=== PATIENT | male | born 1940 | race Caucasian/White ===

== ENCOUNTER → 2018-07-01 07:28 | Outpatient (CLI) | payer MEDICARE, SELFPAY ==
[2018-07-01 07:58] LABS: Absolute Lymphocyte Count 1.38 X10^3/ul (0.83-4.51); Absolute Neutrophil Count 2.2 X10^3/uL (2.0-7.7); Basophil# 0.04 X10^3/uL; Basophil% 0.9 % (0-1); Eosinophil# 0.23 X10^3/uL; Eosinophils% 5.2 % (0-5); Hematocrit 37.5 % (40-54); Hemoglobin 12.2 g/dl (13.0-16.5); Lymphocyte # 1.38 X10^3/ul (4.0); Mean Corp Hgb Conc 32.5 g/gl (32-36); Mean Corpuscular Hgb 33.5 pg (27.0-32.0); Mean Platelet Vol. 9.6 fl (6.2-12.0); Monocyte# 0.63 X10^3/uL; Monocyte% 14.2 % (0-10); Neutrophil # 2.17 X10^3/uL (2.7-7.7); Neutrophil % 48.7 % (47-70); Platelet Count 189 K/mm3 (150-450); RBC Distribution Width CV 12.8 % (11.6-14.6); RBC Distribution Width SD 47.4 fl (35.1-43.9); Red Blood Count 3.64 M/mm3 (4.6-6.2); White Blood Count 4.5 K/mm3 (4.4-11.0)
[2018-07-01 08:00] LABS: POSITIVE COUNT NO; POSITIVE DIFFERENTIAL NO; POSITIVE MORPHOLOGY NO
[2018-07-01 08:20] LABS: Microalbumin,Random Urine 23.5 mg/L (NO RANGE EST.); Microalbumin:Creatinine Ratio 23.8 mg/g CRE (<30 mg/g CRE)
[2018-07-01 08:32] LABS: PTHIN 55.3 pg/mL (18.4-80.1)
[2018-07-01 08:33] LABS: Vitamin B12 623 pg/mL (211-911); Vitamin D,25 Hydroxy 48.3 ng/mL (29.95-100.01)
[2018-07-01 09:22] LABS: ALB/GLOB Ratio 1.1 RATIO (0.9-2.4); AST(SGOT) 23 U/L (15-37); Alanine Aminotransfer ALT/SGPT 24 U/L (16-61); Albumin, Serum 3.7 g/dL (3.2-5.0); Alkaline Phosphatase 56 U/L (45-117); Anion Gap 6 (5-15); BUN 24 mg/dL (7-18); BUN/Creat Ratio 16.7 RATIO (10-20); Calcium,Total 8.7 mg/dL (8.5-10.1); Chloride 108 mmol/L (98-107); Cholesterol 166 mg/dL (200); Creatinine, Serum 1.44 mg/dL (0.70-1.30); EST Glomerular Filtration Rate 50 mL/min (>60); Est Glom Filt Rate - Afr Amer 61 mL/min (>60); Ferritin 79 ng/mL (26-388); Globulin 3.5 g/dL (2.2-4.2); Glucose 84 mg/dL (74-106); High Density Lipoprotein 39 mg/dL; Potassium 4.3 mmol/L (3.5-5.1); Protein, Total 7.2 g/dL (6.4-8.2); Sodium Level 141 mmol/L (136-145); Thyroid Stim Hormone (TSH) 5.21 uIU/mL (0.358-3.74); Triglycerides 105 mg/dL; Very Low Density Lipoprotein 21 mg/dL (5-40)
== END ==
PROVIDERS: Family Provider Family Medicine; PCP Family Medicine; Referring Provider Family Medicine; Visit Provider Family Medicine
DX: N18.3 Chronic kidney disease, stage 3 (moderate) (principal); D64.9 Anemia, unspecified; E78.00 Pure hypercholesterolemia, unspecified; G90.09 Other idiopathic peripheral autonomic neuropathy; E55.9 Vitamin D deficiency, unspecified
CPT/HCPCS: 36415; 80053; 80061; 82043; 82306; 82570; 82607; 82728; 82746; 83970; 84443; 85025

== ENCOUNTER → 2019-02-16 13:48 | Outpatient (CLI) | payer MEDICARE, SELFPAY ==
--- NOTE | 2019-02-16 13:58 | VDLE_ITS ---
Reason For Study: Phlebitis RIGHT LEFT GSV is normal. CFV is compressible, spontaneous, phasic, CFV is compressible, spontaneous, phasic, competent, and demonstrates normal competent and demonstrates normal augmentation. augmentation. FV is compressible, spontaneous, phasic, competent and demonstrates normal augmentation. POP V is compressible, spontaneous, phasic, competent and demonstrates normal augmentation. T/P Trunk is compressible. PTV is compressible. RT PerV is compressible. Thrombus filled varicose veins right medial calf. Interpretation Summary Deep veins of the right lower extremity are patent and compressible segmentally. There is no evidence of right lower extremity deep vein thrombosis. Valvular competence appears intact within the proximal deep venous system on the right . The right greater saphenous vein appears patent and compressible segmentally. Acute superficial thrombophlebitis is noted involving superficial varicosities in the right medial calf. Ordering Physician: Jeronimo Perez Referring Physician: Jeronimo Perez Performed By: Christie Zamora RVT
== END ==
PROVIDERS: Family Provider Family Medicine; PCP Family Medicine; Referring Provider Family Medicine; Visit Provider Family Medicine
DX: I80.3 Phlebitis and thrombophlebitis of lower extremities, unspecified (principal); Z86.718 Personal history of other venous thrombosis and embolism
CPT/HCPCS: 93971

== ENCOUNTER → 2019-07-08 13:51 | Outpatient (CLI) | payer MEDICARE, SELFPAY ==
[2019-07-08 16:31] LABS: Albumin, Serum 3.9 g/dL (3.2-5.0); BUN 29 mg/dL (7-18); BUN/Creat Ratio 20.3 RATIO (10-20); Calcium,Total 8.7 mg/dL (8.5-10.1); Chloride 106 mmol/L (98-107); Creatinine, Serum 1.43 mg/dL (0.70-1.30); EST Glomerular Filtration Rate 51 mL/min (>60); Est Glom Filt Rate - Afr Amer 61 mL/min (>60); Glucose 104 mg/dL (74-106); Phosphorus 3.5 mg/dL (2.5-4.9); Potassium 4.5 mmol/L (3.5-5.1); Sodium Level 141 mmol/L (136-145)
[2019-07-09 09:58] LABS: PTHIN 66.4 pg/mL (18.4-80.1)
== END ==
PROVIDERS: Family Provider Family Medicine; PCP Family Medicine; Referring Provider Internal Medicine Nephrology; Visit Provider Internal Medicine Nephrology
DX: N18.3 Chronic kidney disease, stage 3 (moderate) (principal)
CPT/HCPCS: 36415; 80069; 83970

== ENCOUNTER 2019-09-24 11:50 | Observation (INO) | payer MEDICARE, SELFPAY ==
[2019-09-24] VITALS (10 sets, daily range): BP systolic 112–143; BP diastolic 62–85; PULSE 52–62; RESP 16–19; TEMP 36.5–36.8; O2SAT 94–98; BMI 28.6; BMI 27.7
--- NOTE | 2019-09-24 11:43 | EKG12_ITS ---
Test Reason : CP Blood Pressure : / mmHG Vent. Rate : 064 BPM Atrial Rate : 083 BPM P-R Int : 168 ms QRS Dur : 098 ms QT Int : 412 ms P-R-T Axes : 022 -12 059 degrees QTc Int : 425 ms Sinus rhythm with Premature atrial complexes Otherwise normal ECG Confirmed by AYALA ZUNIGA, CHANDA ([id number]), film and video editor GUILLERMO KIRKPATRICK ([id number]) on 09/28/2019 9:01:20 AM Referred By: Max Bates Confirmed By:CHANDA CAI MD
--- NOTE | 2019-09-24 11:43 | RAD_ITS ---
STUDY: X-RAY CHEST REASON FOR EXAM: Male, 79 years old. CHEST PAIN, NAUSEA TECHNIQUE: Single AP portable view of the chest. COMPARISON: Comparison is made with prior study of August 02, 2017. FINDINGS: EKG electrode are seen. The lungs are clear and expanded. There is no demonstrated pleural abnormality. Normal size heart. Normal mediastinum and valentin. Normal visualized pulmonary arteries. Normal visualized aortic arch and descending thoracic aorta. There are diffuse degenerative changes of the visualized thoracic spine. Normal visualized ribs, clavicles, and shoulders. There is no demonstrated abnormality of the visualized soft tissue structures of the upper abdomen. RAD/Chest 1 View (Portable) IMPRESSION: No acute abnormality is seen. Electronically Signed: Milton Peterson, at 12:16 EST , Service support ,
--- NOTE | 2019-09-24 11:43 | ED.VIS.GEN ---
History of Present Illness Chief Complaint: Chest Pain Informant: Patient Onset: Today Context: Gradual Onset Current Severity: - - Resolved Maximum Severity: Moderate Narrative: Patient reports substernal chest pressure today. He states he was helping serve food for [employer]. He got a pressure sensation behind the sternum that progressively worsened. He states he felt woozy. He did go the bathroom and have a bowel movement. He continued to have chest pressure. EMS was called and patient states the chest pressure resolved while squad was attending to him. He estimates the pain lasted approximately 30 minutes. He did not take any medication to resolve the symptoms. He denies history of cardiac disease. His last heart cath was 7 years ago and clean at that time. - Past Medical History (1) Esophageal reflux Status: Chronic (2) Hx of venous thrombosis and embolism Status: Chronic (3) Pure hypercholesterolemia Status: Chronic Past Medical History - Allergies and Home Meds Allergies/Adverse Reactions: Allergies amoxicillin [From Augmentin] Adverse Reaction (Verified 09/24/19 11:44) Rash clavulanic acid [From Augmentin] Adverse Reaction (Verified 09/24/19 11:44) Rash Primary Care Physician: Jeronimo Perez MD [Primary Care Provider] - Prior records reviewed: Yes Surgical History: appendectomy, herniorrhaphy Smoking Status: Never smoker - Family History Maternal Family History: Reports: Hypertension Paternal Family History: Reports: Stroke Review of Systems General: Denies: Chills, Fever Eyes: Denies: Visual changes - bilaterally ENT: Denies: Bilateral ear pain Cardiovascular: Reports: Chest pain. Denies: Palpitations, Heart racing Respiratory: Reports: Dyspnea. Denies: Cough, Sputum Gastrointestinal: Denies: Abdominal pain, Nausea, Vomiting, Diarrhea Genitourinary: Denies: Dysuria Skin: Denies: Rash Neurological: Denies: Headache Psych: Denies: Depression Allergy: Denies: Uticaria Physical Exam Vital Signs/Narrative: Vital Signs Temp Pulse Resp BP 09/24/19 11:23 97.7 F L 57 L 16 143/82 H Inital Vital Signs reviewed: Yes General: Well nourished, Well developed Head: Normocephalic ENT: Moist mucous membranes Neck: Supple Cardiovascular: Bradycardia Respiratory: No distress, CTA bilaterally Abdomen: Soft, Nontender, Normal bowel sounds Extremities: Nontender Skin: Normal color Neurological: Alert, Oriented x3 Psychological: Normal affect Diagnostic/Tx/Re-eval Impressions Chest X-Ray 09/24/19 11:43 IMPRESSION: No acute abnormality is seen. Electronically Signed: Milton Peterson, at 12:16 EST , Service support , 09/24/19 11:43 Chest 1 View (Portable) [RAD] Stat Laboratory Results 09/24/19 09/24/19 11:56 11:56 WBC 5.7 RBC 3.24 L Hgb 10.6 L Hct 33.8 L MCV 104.3 H MCH 32.7 H MCHC 31.4 L RDW Std Deviation 50.0 H RDW Coeff of Dimas 13.0 Plt Count 162 MPV 9.5 Immature Gran % (Auto) 0.900 Neut % (Auto) 67.5 Lymph % (Auto) 17.7 L [place] % (Auto) 9.6 Eos % (Auto) 3.4 Baso % (Auto) 0.9 Absolute Neuts (auto) 3.8 Absolute Lymphs (auto) 1.00 Nucleated RBC % 0 Sodium 141 Potassium 4.6 Chloride 110 H Carbon Dioxide 25.0 Anion Gap 6 BUN 25 H Creatinine 1.42 H Estim Creat Clear Calc 49.59 Est GFR (MDRD) Af Amer 62 Est GFR (MDRD) Non-Af 51 L BUN/Creatinine Ratio 17.6 Glucose 97 Calcium 8.8 Troponin I < 0.015 - EKG Initial EKG Interpretation: Sinus Rhythm - Sinus at 64 with PACs. No acute ischemia. - Medical Decision Making Patient took 1 baby aspirin this morning. He received 3 additional baby aspirin on arrival. Patient has had no recurrent symptoms, however initial troponin is obtained very quickly after his pain episode. I recommended observation overnight to cycle cardiac enzymes. He is in agreement with this. I will speak with the hospitalist. KULDEEP=2 ED Disposition - Plan for ED Patient: Disposition: Acute Care Hospital [facility] Diagnosis: Chest pain Referrals: Jeronimo Perez MD [Primary Care Provider] -
[2019-09-24] MEDS: Aspirin 81 MG TAB.CHEW 243 MG PO (11:51)
[2019-09-24 12:12] LABS: Absolute Neutrophil Count 3.8 X10^3/uL (2.0-7.7); Basophil# 0.05 X10^3/uL; Basophil% 0.9 % (0-1); Eosinophil# 0.19 X10^3/uL; Eosinophils% 3.4 % (0-5); Hematocrit 33.8 % (40-54); Hemoglobin 10.6 g/dL (13.0-16.5); Lymphocyte % 17.7 % (19-41); Mean Corp Hgb Conc 31.4 g/dL (32-36); Mean Corpuscular Hgb 32.7 pg (27.0-32.0); Mean Corpuscular Volume 104.3 fL (80-94); Mean Platelet Vol. 9.5 fl (6.2-12.0); Monocyte# 0.54 X10^3/uL; Monocyte% 9.6 % (0-10); NRBC Flagged by Analyzer 0 % (0-5); Neutrophil # 3.82 X10^3/uL (2.7-7.7); Neutrophil % 67.5 % (47-70); Platelet Count 162 K/mm3 (150-450); Red Blood Count 3.24 M/mm3 (4.6-6.2); White Blood Count 5.7 K/mm3 (4.4-11.0)
[2019-09-24 12:30] LABS: Anion Gap 6 (5-15); BUN 25 mg/dL (7-18); BUN/Creat Ratio 17.6 RATIO (10-20); Calcium,Total 8.8 mg/dL (8.5-10.1); Chloride 110 mmol/L (98-107); Creatinine, Serum 1.42 mg/dL (0.70-1.30); EST Glomerular Filtration Rate 51 mL/min (>60); Est Glom Filt Rate - Afr Amer 62 mL/min (>60); Estimated Creatinine Clearance 49.59 ml/min; Glucose 97 mg/dL (74-106); Potassium 4.6 mmol/L (3.5-5.1); Sodium Level 141 mmol/L (136-145)
--- NOTE | 2019-09-24 13:06 | PCM.HP.STD ---
Problem List (1) Chest pain Status: Acute (2) Amnesia (retrograde) Status: Chronic (3) Shoulder pain Status: Chronic (4) Pure hypercholesterolemia Status: Chronic (5) Hx of venous thrombosis and embolism Status: Chronic (6) Esophageal reflux Status: Chronic History of Present Illness Date of Admission: 09/24/19 Chief Complaint: Atypical chest pain today The patient is a 79 year old M with history of dyslipidemia, superficial thrombophlebitis in the right medial calf, came with chest pain which lasted less than 1 hour. Chest pain started midsternal, localized, 5-6/10 intensity without radiation or aggravating or relieving factor. Patient was helping serve food on [employer] when chest pain started. Chest pain was pressure-like, heavy 8 put on chest he felt woozy. Later on he went to bathroom and had bowel movement the stool chest pain was persistent and EMS was called. He denies associated shortness of breath, palpitation, sweating or syncope. He denies previous history of heart attack. He had a stress test in November 2011 and heart cath in 04/27/2012 and all were okay as per the patient. [] EMS EKG shows normal sinus rhythm 58 bpm. In ER, EKG normal sinus rhythm with PACs at [address]-T changes to suggest ischemia. Past Medical History Past Medical History (Chronic Problems): Chronic Problems Amnesia (retrograde) (Chronic) Shoulder pain (Chronic) Pure hypercholesterolemia (Chronic) Hx of venous thrombosis and embolism (Chronic) Esophageal reflux (Chronic) Allergies amoxicillin [From Augmentin] Adverse Reaction (Verified 09/24/19 11:44) Rash clavulanic acid [From Augmentin] Adverse Reaction (Verified 09/24/19 11:44) Rash Home Medications: Ambulatory Orders Medication Instructions Recorded Acetaminophen [Tylenol] 500 - 1,000 mg PO Q6H PRN PRN 08/02/17 Acetaminophen/Diphenhydramine 1 each PO QHS 08/02/17 [Tylenol Pm Ex-Strength Caplet] Aspirin E.C. [Ecotrin] 81 mg PO DAILY@0800 08/02/17 Cetirizine HCl [Zyrtec] 10 mg PO DAILY 08/02/17 Dapsone 50 mg PO QHS 08/02/17 Ergocalciferol [Vitamin D] 50,000 unit PO QMONTH 08/02/17 Ezetimibe 10 mg PO DAILY 08/02/17 Famotidine 40 mg PO QHS 08/02/17 Fluticasone 0.05% [Flonase Nasal 2 spray NASAL QHS 08/02/17 [place]] Glucosamine Sulfate 1,500 mg PO QHS 08/02/17 Multivitamins,Ther W-Minerals 1 tablet PO DAILY 08/02/17 [Multivitamin With Minerals] [place]-3 Fatty Acids/Fish Oil [Fish 1 each PO BID 08/02/17 Oil 1,000 mg Capsule] Polyethylene Glycol 3350 [Miralax] 17 gm PO DAILY 08/02/17 Vit C/E/Zn/Coppr/Lutein/Zeaxan 1 each PO BID 08/02/17 [Preservision Areds 2 Softgel] hydrOXYzine tablet [Atarax tablet] 10 mg PO QHS 08/02/17 Omeprazole 20 mg PO DAILY 09/24/19 Surgical History: appendectomy, herniorrhaphy Psychiatric History: No pertinent psych hx Smoking Status: Never smoker - *Family History Maternal History Items: Hypertension Paternal History Items: Stroke Review of Systems Constitutional: Denies: Chills, Fever, Weight Change HEENT: Denies: Head Aches, Sinus Congestion, Sinus Drainage Cardiovascular: Reports: Chest Pain, Chest Pressure. Denies: Palpitations Respiratory: Denies: Cough, Shortness of breath at rest, Sputum production Gastrointestinal: Denies: Abdominal Pain, Nausea, Vomiting Genitourinary: Reports: Hesitancy - Once in night, Nocturia. Denies: Dysuria, Frequency Musculoskeletal: Denies: Joint Pain, Joint Tenderness Skin: Denies: Rash, Wounds Neurological: Reports: Balance problems. Denies: Focal weakness, Numbness, Tingling Psychiatric: Denies: Anxiety, Depression, Homicidal Ideations, Suicidal Ideations Hematologic/ Lymphatic: Denies: Easy Bruising, Easy Bleeding VTE Information - Inpt Only VTE Present on Admission: No VTE Mechan Device Prophylaxis: None VTE Pharm Prophylaxis ordered?: Yes Patient Problems: Active and Suspected Problems Chest pain (Acute) - Physical Exam Vitals/I&O's: Vital Signs Temp Pulse Resp BP Pulse Ox 97.7 F L 57 L 16 143/82 H 98 09/24/19 11:23 09/24/19 11:23 09/24/19 11:23 09/24/19 11:23 09/24/19 11:43 Oxygen Delivery Method Room Air Weight: 229 lb 0.964 oz Body Mass Index (BMI) 28.6 General: Alert, Oriented x3, Cooperative HEENT: Atraumatic, PERRLA, EOMI, Normocephalic Neck: Supple, No JVD, Negative Carotid Bruits Lungs: Clear to auscultation, Normal air movement, No rhonchi, No wheeze, No rales Cardiovascular: Regular rate, Normal S1, Normal S2, No murmurs, Irregular Rate - Irregular rate on palpation. PAC on EKG Abdomen: Bowel Sounds Present, Soft, Non Tender, Non-Distended, No Hepato-splenomegaly Extremities: No edema, Capillary Refill Less than 3 Seconds Skin: No rashes, No breakdown Musculoskeletal: No Tenderness to Palpation of Joints or Extremities, Arthritic Changes Lymphatic: No Cervical, Supraclavicular, or Inguinal Adenopathy Neurological: Cranial nerves II-XII grossly intact, Deep Tendon Reflexes 2+/4 and Symmetrical, Neuro grossly intact Psych/Mental Status: Normal Affect, Appropriate Laboratory Results 09/24/19 11:56: WBC 5.7, RBC 3.24 L, Hgb 10.6 L, Hct 33.8 L, MCV 104.3 H, MCH 32.7 H, MCHC 31.4 L, RDW Std Deviation 50.0 H, RDW Coeff of Dimas 13.0, Plt Count 162, MPV 9.5, Immature Gran % (Auto) 0.900, Neut % (Auto) 67.5, Lymph % (Auto) 17.7 L, [place] % (Auto) 9.6, Eos % (Auto) 3.4, Baso % (Auto) 0.9, Absolute Neuts (auto) 3.8, Absolute Lymphs (auto) 1.00, Nucleated RBC % 0 09/24/19 11:56: Sodium 141, Potassium 4.6, Chloride 110 H, Carbon Dioxide 25.0, Anion Gap 6, BUN 25 H, Creatinine 1.42 H, Estim Creat Clear Calc 49.59, Est GFR (MDRD) Af Amer 62, Est GFR (MDRD) Non-Af 51 L, BUN/Creatinine Ratio 17.6, Glucose 97, Calcium 8.8, Troponin I < 0.015 Assessment/Plan All Active Problems Chest pain (Acute) The patient is a 79 year old M with history of dyslipidemia, superficial thrombophlebitis in the right medial calf, came with chest pain which lasted less than 1 hour. Chest pain started midsternal, localized, 5-6/10 intensity without radiation or aggravating or relieving factor. Patient was helping serve food on [employer] when chest pain started. Chest pain was pressure-like, heavy 8 put on chest he felt woozy. Later on he went to bathroom and had bowel movement the stool chest pain was persistent and EMS was called. He denies associated shortness of breath, palpitation, sweating or syncope. He denies previous history of heart attack. He had a stress test in November 2011 and heart cath in 04/27/2012 and all were okay as per the patient. [] EMS EKG shows normal sinus rhythm 58 bpm. In ER, EKG normal sinus rhythm with PACs at [address]-T changes to suggest ischemia. 1. Atypical chest pain, rule out acute coronary syndrome: Patient is being admitted in PCU. Serial troponin enzymes. EKG after 3 hours. If troponins comes positive, consult cardiology for cardiac cath. Pharmacological nuclear stress test nuclear stress test troponins are negative. Patient had a stress test negative in 2008, 2011 and negative heart cath in 2011. 2. Pozo's lung, hayfever: Patient chest x-ray independently reviewed. It shows fine reticular lines/chronic interstitial changes in both lower lung [place]. No acute abnormality. Chest x-ray report reviewed. 3. GERD: On omeprazole 4. Possible mild BPH: Patient is not on Flomax or finasteride. In patients medical history paper, patient had rectal exam in August 2019 and listed as 40 g, smooth, symmetrical prostate. We will further evaluate for lower urinary tract symptoms. 5. Dyslipidemia: Fasting blood draw tomorrow a.m. 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 Total time of the visit including total time spent in counseling or coordination of care, (more than 50% of the total time, spent in obtaining medical information from nurses), review of labs and imaging is 40 minutes Advance directive/CODE STATUS/living will: Patient has advanced directive form given by PCP but he has not filled up. When discussed about different options; full code, DNR CCA arrest and DNR CC, he wants DNR CC arrest. Patient does not want artificial life support including intubation, tube feed, ventilator and/chest compression. Total time spent in [id number] encounter in discussion of advanced directive 18 minutes. Code Visit OBSV E&M: 84569 Initial observation care L3 Procedures: 06480 Advncd Care Plan 30 Min
--- NOTE | 2019-09-24 14:24 | EKG12_ITS ---
Test Reason : AM EKG Blood Pressure : / mmHG Vent. Rate : 058 BPM Atrial Rate : 058 BPM P-R Int : 184 ms QRS Dur : 092 ms QT Int : 424 ms P-R-T Axes : 041 -12 053 degrees QTc Int : 416 ms Sinus bradycardia Otherwise normal ECG Confirmed by ALYCIA ZUNIGA, LISANDRA ([id number]), news videotape editor GUILLERMO KIRKPATRICK ([id number]) on 09/29/2019 11:07:43 AM Referred By: Max Bates Confirmed By:LISANDRA TONG MD
[2019-09-24] MEDS: Lactated Ringers 1,000 ML 75 ML IV (15:04)
[2019-09-24] MEDS: hydrOXYzine 10 MG Tablet PO (21:38)
[2019-09-24] MEDS: Famotidine 20 MG Tablet 40 MG PO (21:38)
[2019-09-25] VITALS (10 sets, daily range): BP systolic 113–143; BP diastolic 54–76; PULSE 52–67; RESP 16–18; TEMP 36.3–36.8; O2SAT 93–98
[2019-09-25] MEDS: Lactated Ringers 1,000 ML 75 ML IV (03:25)
--- NOTE | 2019-09-25 05:55 | NM_ITS ---
CLINICAL: 79-year-old hypercholesterolemic male with reported history of chest discomfort. REST-REGADENOSON 99m Tc SESTAMIBI STRESS MYOCARDIAL PERFUSION SPECT COMPARISON: None available FINDINGS: Following the intravenous administration of 14.6 mCi of 99m Tc sestamibi, the resting myocardial perfusion acquisitions demonstrate relatively uniform perfusion noted throughout all left ventricular myocardial segments. The patient was administered intravenous regadenoson (0.4 mgm). Following the intravenous administration of 44.5 mCi of 99m Tc sestamibi, the post regadenoson images reveal decreased perfusion in the inferoapical and apical segments. The post stress resting left ventricular ejection fraction is calculated to be 72.0 % by gated SPECT technique. Wall motion and end systolic thickening are considered normal. NM/Nuclear Stress Test - Chemical IMPRESSION: 1. ABNORMAL REST-REGADENOSON STRESS 99m Tc SESTAMIBI MYOCARDIAL PERFUSION SPECT. A. Pharmacologic-induced left ventricular ischemia involving the inferoapical and apical segments. B. Preservation of resting left ventricular myocardial systolic function. (Maria M et al, J Nucl Med 37: 105P, 1995). C. In a registry of 1,511 patients > 80 years of age demonstrating moderate cardiac perfusion defect scores at myocardial perfusion SPECT imaging accomplished at the [facility] or [facility], patients demonstrated a greater than 3% annualized incidence of cardiac . (Noel et al, [facility] 490A, 1999). Electronically Signed: Nish Delarosa DO at 13:37 EST Tel , Service support ,
--- NOTE | 2019-09-25 05:55 | EKG12_ITS ---
Test Reason : AM EKG Blood Pressure : / mmHG Vent. Rate : 058 BPM Atrial Rate : 058 BPM P-R Int : 180 ms QRS Dur : 090 ms QT Int : 424 ms P-R-T Axes : 045 -05 058 degrees QTc Int : 416 ms Sinus bradycardia Otherwise normal ECG Confirmed by ALYCIA ZUNIGA, LISANDRA ([id number]), desk editor GUILLERMO KIRKPATRICK ([id number]) on 09/29/2019 10:11:28 AM Referred By: Max Bates Confirmed By:LISANDRA TONG MD
[2019-09-25] MEDS: Aspirin E.C. 81 MG Tablet PO (06:13)
--- NOTE | 2019-09-25 08:10 | NURSING ---
per pt has a history of hypoglycemia and is concerned because he is not eating breakfast. BS obtained and normal. Educated patient on S/S of hypoglycemia and discussed need to notify me if he has any further concerns or symptoms. Will continue to monitor
[2019-09-25 08:15] LABS: Bedside Glucose 85 mg/dL (70-110)
--- NOTE | 2019-09-25 11:41 | DCINST_ITS ---
- Discharge Diagnoses Current Active Problems: Current Active and Chronic Problems Chest pain (Acute) You will use the following diet at home:: Cardiac Your liquids should be the consistency of: Regular/Thin Discharge Activity: May Not Drive Call your doctor if you observe: Fever of 101 or Higher, Coldness, Increased Pain, Numbness or Tingling, Change in Color, Inability to have a bowel movement, Shortness of breath, Fainting spells, Swelling in the ankles, Chest pain, Increased palpitations (irregular heartbeat) Allergies/Adverse Reactions: Allergies amoxicillin [From Augmentin] Adverse Reaction (Verified 09/24/19 11:44) Rash clavulanic acid [From Augmentin] Adverse Reaction (Verified 09/24/19 11:44) Rash Medications to take at Discharge Acetaminophen [Tylenol] 500 - 1,000 mg PO Q6H PRN PRN 08/02/17 Acetaminophen/Diphenhydramine [Tylenol Pm Ex-Strength Caplet] 1 each PO QHS 08/02/17 Aspirin E.C. [Ecotrin] 81 mg PO DAILY@0800 08/02/17 Cetirizine HCl [Zyrtec] 10 mg PO DAILY 08/02/17 Dapsone 50 mg PO QHS 08/02/17 Ergocalciferol [Vitamin D] 50,000 unit PO QMONTH 08/02/17 Ezetimibe 10 mg PO DAILY 08/02/17 Famotidine 40 mg PO QHS 08/02/17 Fluticasone 0.05% [Flonase Nasal [place]] 2 spray NASAL QHS 08/02/17 Glucosamine Sulfate 1,500 mg PO QHS 08/02/17 Multivitamins,Ther W-Minerals [Multivitamin With Minerals] 1 tablet PO DAILY 08/02/17 [place]-3 Fatty Acids/Fish Oil [Fish Oil 1,000 mg Capsule] 1 each PO BID 08/02/17 Polyethylene Glycol 3350 [Miralax] 17 gm PO DAILY 08/02/17 Vit C/E/Zn/Coppr/Lutein/Zeaxan [Preservision Areds 2 Softgel] 1 each PO BID 08/02/17 hydrOXYzine tablet [Atarax tablet] 10 mg PO QHS 08/02/17 Omeprazole 20 mg PO DAILY 09/24/19 Primary Care Physician: Jeronimo Perez MD [Primary Care Provider] - Please follow up with your Primary Care Physician in: in 2 weeks Test Results: Test results from this visit will be discussed in further detail at your follow-up appointment, if applicable.
[2019-09-25] MEDS: Polyethylene Glycol 3350 17 GM PACKET PO (12:32)
[2019-09-25] MEDS: Loratadine 10 MG Tablet PO (12:32)
[2019-09-25] MEDS: Ezetimibe 10 MG Tablet PO (12:32)
[2019-09-25] MEDS: Multivitamins,Ther W-Minerals Tablet 1 TABLET PO (12:32)
[2019-09-25] MEDS: Pantoprazole Sodium 20 MG Tablet PO (12:32)
--- NOTE | 2019-09-25 12:43 | PCM.DC.SUM ---
Discharge Date and Diagnosis - Problem List Patient Problems: Active and Suspected Problems Chest pain (Acute) Date of Admission: 09/24/19 Date of Discharge: 09/25/19 - Primary Discharge Diagnosis Active and Suspected Problems Chest pain (Acute) - Secondary Discharge Diagnosis Chronic Problems Amnesia (retrograde) (Chronic) Shoulder pain (Chronic) Pure hypercholesterolemia (Chronic) Hx of venous thrombosis and embolism (Chronic) Esophageal reflux (Chronic) Hospital Course and Treatment Imaging Results: 09/25/19 05:55 Nuclear Stress Test - Chemical [NM] AM (NON MEDS) Operations: None Summary of Care Provided: The patient is a 79 year old M [] Patient Problems: Active and Suspected Problems Chest pain (Acute) - Physical Exam Vitals/I&O's: Vital Signs Temp Pulse Resp BP Pulse Ox 97.9 F 58 L 16 136/73 H 96 09/25/19 12:42 09/25/19 12:42 09/25/19 12:42 09/25/19 12:42 09/25/19 12:42 Oxygen Delivery Method Room Air Weight: 221 lb 12.56 oz Body Mass Index (BMI) 27.7 Intake and Output for Last 24 Hours 09/23/19 09/24/19 09/25/19 23:59 23:59 23:59 Intake Total 1628.75 / 1628.75 738.75 / 738.75 Balance 1628.75 / 1628.75 738.75 / 738.75 Laboratory Results 09/24/19 15:17: Troponin I < 0.015 09/24/19 18:26: Troponin I < 0.015 09/25/19 08:10: POC Glucose 85 Current Medications Acetaminophen (Tylenol) 650 mg PO Q6H PRN PRN PRN Reason: Pain Score 1-3/Temp > 100.7 F Aspirin (Ecotrin) 81 mg PO DAILY@0800 [facility], [facility] Last Admin: 09/25/19 06:13 Dose: 81 mg Documented by: Dapsone (Dapsone) 50 mg PO QHS [facility], [facility] Last Admin: 09/24/19 21:38 Dose: 50 mg Documented by: Ezetimibe (Zetia) 10 mg PO DAILY [facility], [facility] Last Admin: 09/25/19 12:32 Dose: 10 mg Documented by: Enoxaparin Sodium (Lovenox) 30 mg SC DAILY@0600 [facility], [facility] Last Admin: 09/25/19 06:02 Dose: Not Given Documented by: Famotidine (Pepcid) 40 mg PO QHS [facility] Last Admin: 09/24/19 21:38 Dose: 40 mg Documented by: Fluticasone Propionate (Flonase Nasal [place]) [facility] Last Admin: 09/24/19 21:38 Dose: Not Given Documented by: Glucagon () 1 mg IM .X1 PRN PRN Reason: Hypoglycemia Hydroxyzine HCl (Atarax Tablet) 10 mg PO QHS [facility] Last Admin: 09/24/19 21:38 Dose: 10 mg Documented by: Lactated Ringer's () 1,000 mls @ 75 mls/hr IV .[id number] [facility], [facility] Last Infusion: 09/25/19 08:30 Dose: 0 mls/hr Documented by: Dextrose (Dextrose 10%-Water) 250 mls @ 999 mls/hr IV .Q16M PRN; Protocol PRN Reason: HYPOGLYCEMIA Sodium Chloride () 500 mls @ 15 mls/hr IV PRN PRN PRN Reason: Blood Transfusion Sodium Chloride () 250 mls @ 15 mls/hr IV .[id number] PRN PRN Reason: Saline Flush Sodium Chloride () 250 mls @ 15 mls/hr IV .[id number] PRN PRN Reason: Additional IVPB Infusion Loratadine (Claritin) 10 mg PO DAILY [facility] Last Admin: 09/25/19 12:32 Dose: 10 mg Documented by: Morphine Sulfate () 2 mg IV Q3H PRN PRN PRN Reason: Pain Score 6-10/10 Multivitamins/Minerals ([facility]ivitamin With Minerals) [facility] Last Admin: 09/25/19 12:32 Dose: 1 tablet Documented by: Nitroglycerin (Nitrostat) 0.4 mg SUBLINGUAL Q5M PRN PRN Reason: CARDIAC/CHEST PAIN Oxycodone HCl (Oxyir) 5 mg PO Q4H PRN PRN PRN Reason: Pain Score 4-5/10 Pantoprazole Sodium (Protonix) 20 mg PO DAILY [facility] Last Admin: 09/25/19 12:32 Dose: 20 mg Documented by: Polyethylene Glycol (Miralax) 17 gm PO DAILY [facility] Last Admin: 09/25/19 12:32 Dose: 17 gm Documented by: Senna/Docusate Sodium (Senokot-S, Brionna-Colace) 2 tablet PO BID PRN PRN PRN Reason: Constipation Sodium Chloride () 10 - 40 ml IV UD PRN PRN Reason: SALINE FLUSH Discharge Activity: May Not Drive Call your doctor if you observe: Fever of 101 or Higher, Coldness, Increased Pain, Numbness or Tingling, Change in Color, Inability to have a bowel movement, Shortness of breath, Fainting spells, Swelling in the ankles, Chest pain, Increased palpitations (irregular heartbeat) Home Medications: Medications to take at Discharge Acetaminophen [Tylenol] 500 - 1,000 mg PO Q6H PRN PRN 08/02/17 Acetaminophen/Diphenhydramine [Tylenol Pm Ex-Strength Caplet] 1 each PO QHS 08/02/17 Aspirin E.C. [Ecotrin] 81 mg PO DAILY@0800 08/02/17 Cetirizine HCl [Zyrtec] 10 mg PO DAILY 08/02/17 Dapsone 50 mg PO QHS 08/02/17 Ergocalciferol [Vitamin D] 50,000 unit PO QMONTH 08/02/17 Ezetimibe 10 mg PO DAILY 08/02/17 Famotidine 40 mg PO QHS 08/02/17 Fluticasone 0.05% [Flonase Nasal [place]] 2 spray NASAL QHS 08/02/17 Glucosamine Sulfate 1,500 mg PO QHS 08/02/17 Multivitamins,Ther W-Minerals [Multivitamin With Minerals] 1 tablet PO DAILY 08/02/17 [place]-3 Fatty Acids/Fish Oil [Fish Oil 1,000 mg Capsule] 1 each PO BID 08/02/17 Polyethylene Glycol 3350 [Miralax] 17 gm PO DAILY 08/02/17 Vit C/E/Zn/Coppr/Lutein/Zeaxan [Preservision Areds 2 Softgel] 1 each PO BID 08/02/17 hydrOXYzine tablet [Atarax tablet] 10 mg PO QHS 08/02/17 Omeprazole 20 mg PO DAILY 09/24/19 Primary Care Physician: Jeronimo Perez MD [Primary Care Provider] - Please follow up with your Primary Care Physician in: in 2 weeks Medical Necessity - Tobacco Use Smoking Status: Never smoker
[2019-09-25 13:03] LABS: Absolute Lymphocyte Count 1.43 X10^3/uL (0.83-4.51); Absolute Neutrophil Count 3.6 X10^3/uL (2.0-7.7); Basophil# 0.05 X10^3/uL; Basophil% 0.8 % (0-1); Eosinophil# 0.23 X10^3/uL; Eosinophils% 3.9 % (0-5); Hematocrit 35.5 % (40-54); Hemoglobin 11.2 g/dL (13.0-16.5); Lymphocyte # 1.43 X10^3/ul (4.0); Lymphocyte % 24.1 % (19-41); Mean Corp Hgb Conc 31.5 g/dL (32-36); Mean Corpuscular Hgb 32.8 pg (27.0-32.0); Mean Corpuscular Volume 104.1 fL (80-94); Mean Platelet Vol. 9.3 fl (6.2-12.0); Monocyte% 10.1 % (0-10); NRBC Flagged by Analyzer 0 % (0-5); Neutrophil # 3.61 X10^3/uL (2.7-7.7); Neutrophil % 60.9 % (47-70); Platelet Count 161 K/mm3 (150-450); RBC Distribution Width CV 13.1 % (11.6-14.6); RBC Distribution Width SD 49.6 fl (35.1-43.9); Red Blood Count 3.41 M/mm3 (4.6-6.2); White Blood Count 5.9 K/mm3 (4.4-11.0)
[2019-09-25 13:36] LABS: Anion Gap 4 (5-15); BUN 22 mg/dL (7-18); BUN/Creat Ratio 15.6 RATIO (10-20); Chloride 111 mmol/L (98-107); Cholesterol 172 mg/dL (200); Creatinine, Serum 1.41 mg/dL (0.70-1.30); EST Glomerular Filtration Rate 51 mL/min (>60); Est Glom Filt Rate - Afr Amer 62 mL/min (>60); Estimated Creatinine Clearance 49.94 ml/min; Glucose 118 mg/dL (74-106); High Density Lipoprotein 38 mg/dL; Magnesium 2.2 mg/dL (1.6-2.6); Potassium 4.2 mmol/L (3.5-5.1); Sodium Level 140 mmol/L (136-145); Thyroid Stim Hormone (TSH) 3.99 uIU/mL (0.358-3.74); Triglycerides 133 mg/dL; Very Low Density Lipoprotein 27 mg/dL (5-40)
--- NOTE | 2019-09-25 13:59 | PN_ITS ---
Patient Problems: Active and Suspected Problems Chest pain (Acute) Reason for Visit: The patient did not had any chest pain or shortness of breath during the pharmacological stress test. Pharmacological stress test reported as abnormal. Objective: Patient blood pressure is controlled. No tachycardia or shortness of breath. No fever. No chest pain since admission. Vitals/I&O's: Vital Signs Temp Pulse Resp BP Pulse Ox 97.9 F 58 L 16 136/73 H 96 09/25/19 12:42 09/25/19 12:42 09/25/19 12:42 09/25/19 12:42 09/25/19 12:42 Oxygen Delivery Method Room Air Weight: 221 lb 12.56 oz Body Mass Index (BMI) 27.7 Intake and Output for Last 24 Hours 09/23/19 09/24/19 09/25/19 23:59 23:59 23:59 Intake Total 1628.75 / 1628.75 738.75 / 738.75 Balance 1628.75 / 1628.75 738.75 / 738.75 General: Alert, Oriented x3, Cooperative HEENT: Atraumatic, PERRLA, EOMI, Normocephalic Neck: Supple, No JVD, Negative Carotid Bruits Lungs: Clear to auscultation, Normal air movement, No rhonchi, No wheeze, No rales Cardiovascular: Regular rate, Regular Rhythm, Normal S1, Normal S2, No murmurs Abdomen: Bowel Sounds Present, Soft, Non Tender Extremities: No edema, Capillary Refill Less than 3 Seconds Skin: No rashes, No breakdown Musculoskeletal: No Tenderness to Palpation of Joints or Extremities, Arthritic Changes Lymphatic: No Cervical, Supraclavicular, or Inguinal Adenopathy Neurological: Cranial nerves II-XII grossly intact, Deep Tendon Reflexes 2+/4 and Symmetrical, Neuro grossly intact, - - Essential tremor in hand Psych/Mental Status: Normal Affect, Appropriate Laboratory Results 09/24/19 15:17: Troponin I < 0.015 09/24/19 18:26: Troponin I < 0.015 09/25/19 05:55: Sodium 140, Potassium 4.2, Chloride 111 H, Carbon Dioxide 25.0, Anion Gap 4 L, BUN 22 H, Creatinine 1.41 H, Estim Creat Clear Calc 49.94, Est GFR (MDRD) Af Amer 62, Est GFR (MDRD) Non-Af 51 L, BUN/Creatinine Ratio 15.6, Glucose 118 H, Calcium 9.0, Magnesium 2.2, Triglycerides 133, Cholesterol 172, LDL Cholesterol 107, VLDL Cholesterol 27, HDL Cholesterol 38 L, TSH 3.99 H 09/25/19 08:10: POC Glucose 85 09/25/19 12:50: WBC 5.9, RBC 3.41 L, Hgb 11.2 L, Hct 35.5 L, MCV 104.1 H, MCH 32.8 H, MCHC 31.5 L, RDW Std Deviation 49.6 H, RDW Coeff of Dimas 13.1, Plt Count 161, MPV 9.3, Immature Gran % (Auto) 0.200, Neut % (Auto) 60.9, Lymph % (Auto) 24.1, George % (Auto) 10.1 H, Eos % (Auto) 3.9, Baso % (Auto) 0.8, Absolute Neuts (auto) 3.6, Absolute Lymphs (auto) 1.43, Nucleated RBC % 0 Current Medications Acetaminophen (Tylenol) 650 mg PO Q6H PRN PRN PRN Reason: Pain Score 1-3/Temp > 100.7 F Aspirin (Ecotrin) 81 mg PO DAILY@0800 COUNTS INCLUDE 234 BEDS AT THE [facility] Last Admin: 09/25/19 06:13 Dose: 81 mg Documented by: Dapsone (Dapsone) 50 mg PO QHS COUNTS INCLUDE 234 BEDS AT THE [facility] Last Admin: 09/24/19 21:38 Dose: 50 mg Documented by: Ezetimibe (Zetia) 10 mg PO DAILY COUNTS INCLUDE 234 BEDS AT THE [facility] Last Admin: 09/25/19 12:32 Dose: 10 mg Documented by: Enoxaparin Sodium (Lovenox) 30 mg SC DAILY@0600 COUNTS INCLUDE 234 BEDS AT THE [facility] Last Admin: 09/25/19 06:02 Dose: Not Given Documented by: Famotidine (Pepcid) 40 mg PO QHS COUNTS INCLUDE 234 BEDS AT THE [facility] Last Admin: 09/24/19 21:38 Dose: 40 mg Documented by: Fluticasone Propionate (Fl[facility]ase Nasal [place]) [facility] Last Admin: 09/24/19 21:38 Dose: Not Given Documented by: Glucagon () 1 mg IM .X1 PRN PRN Reason: Hypoglycemia Hydroxyzine HCl (Atarax Tablet) [facility] Last Admin: 09/24/19 21:38 Dose: 10 mg Documented by: Lactated Ringer's () 1,000 mls @ 75 mls/hr IV .[id number] COUNTS INCLUDE 234 BEDS AT THE [facility] Last Infusion: 09/25/19 08:30 Dose: 0 mls/hr Documented by: Dextrose (Dextrose 10%-Water) 250 mls @ 999 mls/hr IV .Q16M PRN; Protocol PRN Reason: HYPOGLYCEMIA Sodium Chloride () 500 mls @ 15 mls/hr IV PRN PRN PRN Reason: Blood Transfusion Sodium Chloride () 250 mls @ 15 mls/hr IV .[id number] PRN PRN Reason: Saline Flush Sodium Chloride () 250 mls @ 15 mls/hr IV .[id number] PRN PRN Reason: Additional IVPB Infusion Loratadine (Claritin) 10 mg PO DAILY COUNTS INCLUDE 234 BEDS AT THE [facility] Last Admin: 09/25/19 12:32 Dose: 10 mg Documented by: Morphine Sulfate () 2 mg IV Q3H PRN PRN PRN Reason: Pain Score 6-10/10 Multivitamins/Minerals (Multivitamin With Minerals) [facility] Last Admin: 09/25/19 12:32 Dose: 1 tablet Documented by: Nitroglycerin (Nitrostat) 0.4 mg SUBLINGUAL Q5M PRN PRN Reason: CARDIAC/CHEST PAIN Oxycodone HCl (Oxyir) 5 mg PO Q4H PRN PRN PRN Reason: Pain Score 4-5/10 Pantoprazole Sodium (Protonix) 20 mg PO DAILY COUNTS INCLUDE 234 BEDS AT THE [facility] Last Admin: 09/25/19 12:32 Dose: 20 mg Documented by: Polyethylene Glycol (Miralax) 17 gm PO DAILY COUNTS INCLUDE 234 BEDS AT THE [facility] Last Admin: 09/25/19 12:32 Dose: 17 gm Documented by: Senna/Docusate Sodium (Senokot-S, Brionna-Colace) 2 tablet PO BID PRN PRN PRN Reason: Constipation Sodium Chloride () 10 - 40 ml IV UD PRN PRN Reason: SALINE FLUSH STROKE Vital Signs/Narrative: Vital Signs Temp Pulse Resp BP Pulse Ox 09/25/19 12:42 97.9 F 58 L 16 136/73 H 96 Medical Necessity - Tobacco Use Smoking Status: Never smoker Assessment/Plan All Active Problems Chest pain (Acute) The patient is a 79 year old M with history of dyslipidemia, superficial thrombophlebitis in the right medial calf, came with chest pain which lasted less than 1 hour. He had a stress test in November 2011 and heart cath in 04/27/2012 and all were okay as per the patient. Patient had a stress test negative in 2008, 2011 and ne gative heart cath in 2011. [] EMS EKG shows normal sinus rhythm 58 bpm. In ER, EKG normal sinus rhythm with PACs at [address]-T changes to suggest ischemia. 1. Atypical chest pain, possible unstable angina with abnormal stress test: Patient is being admitted in PCU. Serial troponin enzymes were negative. Repeat EKG after 3 hours does not show significant ST-T changes suggestive of ischemia. Furthermore, pharmacological nuclear test was done which reported as pharmacologic induced left ventricular ischemia involving the inferior apical and apical segments. Preservation of resting LV myocardial systolic function. This was reported by Dr. Nish Delarosa. The stress test findings discussed with the hadoop analyst Dr. South and requested for consult. Possible heart cath on Friday. 2. Pozo's lung, hayfever: Patient chest x-ray independently reviewed. It shows fine reticular lines/chronic interstitial changes in both lower lung lozada. No acute abnormality. Chest x-ray report reviewed. 09/25: No acute shortness of breath, tachypnea or hypoxia. 3. GERD: On omeprazole 4. Possible mild BPH: Patient is not on Flomax or finasteride. In patients medical history paper, patient had rectal exam in August 2019 and listed as 40 g, smooth, symmetrical prostate. 09/25: Patient denies any increased frequency, urgency or burning micturition. Denies urinary retention. No acute intervention needed. 5. Dyslipidemia: Fasting blood draw was done. LDL 107, HDL 38, triglyceride 133. Patient further said he has history of hypoglycemia. Further concern will need outpatient evaluation. Currently glucoses 118 on BMP. 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 The patient admission status is changed from observation to inpatient as he needs more than 2 midnight stays for chest pain and abnormal stress test. Total time of the visit including total time spent in counseling or coordination of care, (more than 50% of the total time, spent in obtaining medical i nformation from nurses and other ancillary care providers), discussion with the patient and his , review of labs and imaging is 30 minutes Advance directive/CODE STATUS/living will: DNR CC arrest Patient has advanced directive form given by PCP but he has not filled up. When discussed about different options; full code, DNR CCA arrest and DNR CC, he wants DNR CC arrest. Patient does not want artificial life support including intubation, tube feed, ventilator and/chest compression. Laboratory Results 09/24/19 15:17: Troponin I < 0.015 09/24/19 18:26: Troponin I < 0.015 09/25/19 05:55: Sodium 140, Potassium 4.2, Chloride 111 H, Carbon Dioxide 25.0, Anion Gap 4 L, BUN 22 H, Creatinine 1.41 H, Estim Creat Clear Calc 49.94, Est GFR (MDRD) Af Amer 62, Est GFR (MDRD) Non-Af 51 L, BUN/Creatinine Ratio 15.6, Glucose 118 H, Calcium 9.0, Magnesium 2.2, Triglycerides 133, Cholesterol 172, LDL Cholesterol 107, VLDL Cholesterol 27, HDL Cholesterol 38 L, TSH 3.99 H 09/25/19 08:10: POC Glucose 85 09/25/19 12:50: WBC 5.9, RBC 3.41 L, Hgb 11.2 L, Hct 35.5 L, MCV 104.1 H, MCH 32.8 H, MCHC 31.5 L, RDW Std Deviation 49.6 H, RDW Coeff of Dimas 13.1, Plt Count 161, MPV 9.3, Immature Gran % (Auto) 0.200, Neut % (Auto) 60.9, Lymph % (Auto) 24.1, George % (Auto) 10.1 H, Eos % (Auto) 3.9, Baso % (Auto) 0.8, Absolute Neuts (auto) 3.6, Absolute Lymphs (auto) 1.43, Nucleated RBC % 0 Code Visit Inpatient E&M: [id number] Subs Hosp L2
--- NOTE | 2019-09-25 14:33 | STRESSREP ---
Stress Test Report Pharmacological stress myocardial perfusion study Resting EKG showed sinus rhythm at rate of 55 beats a minute otherwise normal ECG record Resting blood pressure was 140/70 mmHg Patient was then given 0.4 mg IV Lexiscan as a bolus infusion. EKG during the infusion showed no significant ST segment changes. patient had no symptoms of chest discomfort. Rare monomorphic PVCs noted in the recovery phase Impression 1. Uneventfull Lexiscan EKG stress test 2. Rest and post stress images will be reported by Radiology.
--- NOTE | 2019-09-25 17:52 | CON.PCM_ITS ---
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 The pressure was 5-10 severity and patient denies any similar episode of chest pressure in the past. He has been followed with Dr. Hurt and had a left heart catheterization done in 2011 and that was unremarkable. Denies any exertional chest discomfort. Had pharmacological stress myocardial perfusion study earlier in the day and was noted to have inferior apical ischemia on the nuclear SPECT imaging study and subsequently cardiac consultation was requested patient is chest pain-free at the time of this evaluation [] Past Medical History Allergies/Adverse Reactions: Allergies amoxicillin [From Augmentin] Adverse Reaction (Verified 09/24/19 11:44) Rash clavulanic acid [From Augmentin] Adverse Reaction (Verified 09/24/19 11:44) Rash Home Medications: Ambulatory Orders Medication Instructions Recorded Acetaminophen [Tylenol] 500 - 1,000 mg PO Q6H PRN PRN 08/02/17 Acetaminophen/Diphenhydramine 1 each PO QHS 08/02/17 [Tylenol Pm Ex-Strength Caplet] Aspirin E.C. [Ecotrin] 81 mg PO DAILY@0800 08/02/17 Cetirizine HCl [Zyrtec] 10 mg PO DAILY 08/02/17 Dapsone 50 mg PO QHS 08/02/17 Ergocalciferol [Vitamin D] 50,000 unit PO QMONTH 08/02/17 Ezetimibe 10 mg PO DAILY 08/02/17 Famotidine 40 mg PO QHS 08/02/17 Fluticasone 0.05% [Flonase Nasal 2 spray NASAL QHS 08/02/17 [place]] Glucosamine Sulfate 1,500 mg PO QHS 08/02/17 Multivitamins,Ther W-Minerals 1 tablet PO DAILY 08/02/17 [Multivitamin With Minerals] [place]-3 Fatty Acids/Fish Oil [Fish 1 each PO BID 08/02/17 Oil 1,000 mg Capsule] Polyethylene Glycol 3350 [Miralax] 17 gm PO DAILY 08/02/17 Vit C/E/Zn/Coppr/Lutein/Zeaxan 1 each PO BID 08/02/17 [Preservision Areds 2 Softgel] hydrOXYzine tablet [Atarax tablet] 10 mg PO QHS 08/02/17 Omeprazole 20 mg PO DAILY 09/24/19 Past Medical History (Chronic Problems): Chronic Problems Amnesia (retrograde) (Chronic) Shoulder pain (Chronic) Pure hypercholesterolemia (Chronic) Hx of venous thrombosis and embolism (Chronic) Esophageal reflux (Chronic) Surgical History: appendectomy, herniorrhaphy Psychiatric History: No pertinent psych hx - *Family History Maternal History Items: Hypertension Paternal History Items: Stroke Smoking Status: Never smoker Objective: Vital Signs Temp Pulse Resp BP Pulse Ox 97.9 F 59 L 16 136/73 H 98 09/25/19 12:42 09/25/19 14:30 09/25/19 12:42 09/25/19 12:42 09/25/19 13:30 Oxygen Delivery Method Room Air Weight: 221 lb 12.56 oz Body Mass Index (BMI) 27.7 Intake and Output for Last 24 Hours 09/23/19 09/24/19 09/25/19 23:59 23:59 23:59 Intake Total 1628.75 / 1628.75 738.75 / 738.75 Balance 1628.75 / 1628.75 738.75 / 738.75 General: Awake, Alert, Oriented x 3 HEENT: PERRL, EOMI, Sclera Non Icteric Neck: Supple, Good ROM, No Lymph Node Enlargement Lungs: Clear to auscultation Cardiovascular: Regular Rhythm, Normal S1, Normal S2, No Murmurs, No Rubs, No Gallops Vascular: No Carotid Bruits, Normal Femoral Pulses, Normal Radial Pulses, Normal Dorsalis Pedal Pulse, Normal Posterior Tibial Pulses Abdomen: Bowel Sounds Present, Soft, Non Tender, No HSM, No Organomegaly Extremities: No Cyanosis, No Clubbing, No edema Neurological: No Focal Motor or Sensory Deficit 09/24/19 18:26: Troponin I < 0.015 09/25/19 05:55: Sodium 140, Potassium 4.2, Chloride 111 H, Carbon Dioxide 25.0, Anion Gap 4 L, BUN 22 H, Creatinine 1.41 H, Est GFR (MDRD) Af Amer 62, Est GFR (MDRD) Non-Af 51 L, BUN/Creatinine Ratio 15.6, Glucose 118 H, Calcium 9.0, Magnesium 2.2, Triglycerides 133, Cholesterol 172, LDL Cholesterol 107, VLDL Cholesterol 27, HDL Cholesterol 38 L 09/25/19 12:50: WBC 5.9, RBC 3.41 L, Hgb 11.2 L, Hct 35.5 L, MCV 104.1 H, MCH 32.8 H, MCHC 31.5 L, Plt Count 161, MPV 9.3, Immature Gran % (Auto) 0.200, Neut % (Auto) 60.9, Lymph % (Auto) 24.1, [place] % (Auto) 10.1 H, Eos % (Auto) 3.9, Baso % (Auto) 0.8, Absolute Neuts (auto) 3.6, Nucleated RBC % 0 Rhythm: EKG: ECHO: Stress Test: Cardiac Cath: PCI: CT Surgery: Holter monitor: EPS: PPM: CXR: Chest CT Scan: Assessment/Plan #1 chest discomfort on exertion with no evidence of acute myocardial event however his pharmacological stress of mitral pulmonary was abnormal showing evidence of inferoapical ischemia. Hence patient would merit to have left heart catheterization and this will be done by Dr. Hurt on Friday morning. I have explained to the patient about the possibility of left heart cath and he clearly understands and consents to proceed with this plan. He has no active symptoms of chest discomfort with no acute coronary syndrome I see no indication to start him on Lovenox or nitrates for now 2. Dyslipidemia 3.Dermatitis herpetiformis 4. Essential tremors 5. Amnesia 6. Arthritis
[2019-09-25] MEDS: TICAGRELOR 90 MG TABLET 180 MG PO (17:58)
[2019-09-25] MEDS: Famotidine 20 MG Tablet 40 MG PO (21:25)
[2019-09-25] MEDS: hydrOXYzine 10 MG Tablet PO (21:26)
[2019-09-26] VITALS (10 sets, daily range): BP systolic 112–145; BP diastolic 60–71; PULSE 59–66; RESP 16–18; TEMP 36.6–37.3; O2SAT 94–98
[2019-09-26] MEDS: Enoxaparin 30 MG/0.3 ML Syringe SC (06:41)
[2019-09-26 08:07] LABS: T4 Free Direct 1.07 ng/dL (0.76-1.46)
[2019-09-26] MEDS: Aspirin E.C. 81 MG Tablet PO (08:30)
[2019-09-26] MEDS: Multivitamins,Ther W-Minerals Tablet 1 TABLET PO (08:30)
[2019-09-26] MEDS: Ezetimibe 10 MG Tablet PO (08:31)
[2019-09-26] MEDS: Loratadine 10 MG Tablet PO (08:31)
[2019-09-26] MEDS: Pantoprazole Sodium 20 MG Tablet PO (08:31)
[2019-09-26] MEDS: TICAGRELOR 90 MG TABLET PO ×2 (08:36→20:55)
[2019-09-26] MEDS: Polyethylene Glycol 3350 17 GM PACKET PO (08:40)
--- NOTE | 2019-09-26 12:26 | PN.CARD_ITS ---
Subjectve: pt denies any symptoms of chest discomfort or shortness of breath he was ambulating on the floor with no limitations Objective: Vital Signs Temp Pulse Resp BP Pulse Ox 97.9 F 66 16 112/69 97 09/26/19 08:28 09/26/19 11:14 09/26/19 08:28 09/26/19 08:28 09/26/19 08:28 Oxygen Delivery Method Room Air Weight: 221 lb 12.56 oz Body Mass Index (BMI) 27.7 Intake and Output for Last 24 Hours 09/24/19 09/25/19 09/26/19 23:59 23:59 23:59 Intake Total 1628.75 / 1628.75 1818.75 / 1818.75 750 / 750 Balance 1628.75 / 1628.75 1818.75 / 1818.75 750 / 750 General: Awake, Alert, Oriented x 3 HEENT: PERRL, EOMI, Sclera Non Icteric Neck: Supple, Good ROM, No Lymph Node Enlargement Lungs: Clear to auscultation Cardiovascular: Regular Rhythm, Normal S1, Normal S2, No Murmurs, No Rubs, No Gallops Vascular: No Carotid Bruits, Normal Femoral Pulses, Normal Radial Pulses, Normal Dorsalis Pedal Pulse, Normal Posterior Tibial Pulses Abdomen: Bowel Sounds Present, Soft, Non Tender, No HSM, No Organomegaly Extremities: No Cyanosis, No Clubbing, No edema Neurological: No Focal Motor or Sensory Deficit 09/25/19 05:55: Sodium 140, Potassium 4.2, Chloride 111 H, Carbon Dioxide 25.0, Anion Gap 4 L, BUN 22 H, Creatinine 1.41 H, Est GFR (MDRD) Af Amer 62, Est GFR (MDRD) Non-Af 51 L, BUN/Creatinine Ratio 15.6, Glucose 118 H, Calcium 9.0, Magnesium 2.2, Triglycerides 133, Cholesterol 172, LDL Cholesterol 107, VLDL Cholesterol 27, HDL Cholesterol 38 L 09/25/19 12:50: WBC 5.9, RBC 3.41 L, Hgb 11.2 L, Hct 35.5 L, MCV 104.1 H, MCH 32.8 H, MCHC 31.5 L, Plt Count 161, MPV 9.3, Immature Gran % (Auto) 0.200, Neut % (Auto) 60.9, Lymph % (Auto) 24.1, [place] % (Auto) 10.1 H, Eos % (Auto) 3.9, Baso % (Auto) 0.8, Absolute Neuts (auto) 3.6, Nucleated RBC % 0 Rhythm: EKG: ECHO: Stress Test: Cardiac Cath: PCI: CT Surgery: Holter monitor: EPS: PPM: CXR: Chest CT Scan: Medical Necessity - Tobacco Use Smoking Status: Never smoker Assessment/Plan #1 chest discomfort on exertion with no evidence of acute myocardial event however his pharmacological stress of mitral pulmonary was abnormal showing evidence of inferoapical ischemia. Hence patient would merit to have left heart catheterization and this will be done by Dr. Hurt on Friday morning. I have explained to the patient about the possibility of left heart cath and he clearly understands and consents to proceed with this plan. He has no active symptoms of chest discomfort with no acute coronary syndrome I see no indication to start him on Lovenox or nitrates for now 2. Dyslipidemia 3.Dermatitis herpetiformis 4. Essential tremors 5. Amnesia 6. Arthritis will discontinue prophylactic dose of Lovenox
--- NOTE | 2019-09-26 15:01 | PCM.PN.HOSP ---
Patient Problems: Active and Suspected Problems Chest pain (Acute) Reason for Visit: Patient does not have any chest pain no shortness of breath. Was started on Brilinta 180 mg loading dose and continue 90 mg twice daily requires significant abnormal stress test result. Evidence of inferoapical and apical ischemia found on a stress test. Vitals/I&O's: Vital Signs Temp Pulse Resp BP Pulse Ox 98.2 F 64 18 145/71 H 95 09/26/19 14:35 09/26/19 14:35 09/26/19 14:35 09/26/19 14:35 09/26/19 14:35 Oxygen Delivery Method Room Air Weight: 221 lb 12.56 oz Body Mass Index (BMI) 27.7 Intake and Output for Last 24 Hours 09/24/19 09/25/19 09/26/19 23:59 23:59 23:59 Intake Total 1628.75 / 1628.75 1818.75 / 1818.75 750 / 750 Balance 1628.75 / 1628.75 1818.75 / 1818.75 750 / 750 General: Alert, Oriented x3, Cooperative HEENT: Atraumatic, PERRLA, EOMI, Normocephalic Neck: Supple, No JVD, Negative Carotid Bruits Lungs: Clear to auscultation, Normal air movement, No rhonchi, No wheeze, No rales Cardiovascular: Regular rate, Regular Rhythm, Normal S1, Normal S2, No murmurs Abdomen: Bowel Sounds Present, Soft, Non Tender, Non-Distended Extremities: No edema, Capillary Refill Less than 3 Seconds Skin: No rashes, No breakdown Musculoskeletal: No Tenderness to Palpation of Joints or Extremities, Arthritic Changes Neurological: Cranial nerves II-XII grossly intact, Deep Tendon Reflexes 2+/4 and Symmetrical, Neuro grossly intact Psych/Mental Status: Normal Affect, Appropriate Laboratory Results 09/26/19 07:18: Free T4 1.07 Current Medications Acetaminophen (Tylenol) 650 mg PO Q6H PRN PRN PRN Reason: Pain Score 1-3/Temp > 100.7 F Aspirin (Ecotrin) 81 mg PO DAILY@0800 [facility] Last Admin: 09/26/19 08:30 Dose: 81 mg Documented by: Dapsone (Dapsone) 50 mg PO QHS [facility] Last Admin: 09/25/19 21:26 Dose: 50 mg Documented by: Ezetimibe (Zetia) 10 mg PO DAILY [facility] Last Admin: 09/26/19 08:31 Dose: 10 mg Documented by: Famotidine (Pepcid) 40 mg PO QHS [facility] Last Admin: 09/25/19 21:25 Dose: 40 mg Documented by: Fluticasone Propionate (Flonase Nasal [place]) [facility] Admin: 09/25/19 21:26 Dose: Not Given Documented by: Glucagon () 1 mg IM .X1 PRN PRN Reason: Hypoglycemia Hydroxyzine HCl (Atarax Tablet) 10 mg PO QHS [facility] Last Admin: 09/25/19 21:26 Dose: 10 mg Documented by: Dextrose (Dextrose 10%-Water) 250 mls @ 999 mls/hr IV .Q16M PRN; Protocol PRN Reason: HYPOGLYCEMIA Sodium Chloride () 500 mls @ 15 mls/hr IV PRN PRN PRN Reason: Blood Transfusion Sodium Chloride () 250 mls @ 15 mls/hr IV .[id number] PRN PRN Reason: Saline Flush Sodium Chloride () 250 mls @ 15 mls/hr IV .[id number] PRN PRN Reason: Additional IVPB Infusion Loratadine (Claritin) 10 mg PO DAILY [facility] Last Admin: 09/26/19 08:31 Dose: 10 mg Documented by: Morphine Sulfate () 2 mg IV Q3H PRN PRN PRN Reason: Pain Score 6-10/10 Multivitamins/Minerals (Multivitamin With Minerals) [facility] Last Admin: 09/26/19 08:30 Dose: 1 tablet Documented by: Nitroglycerin (Nitrostat) 0.4 mg SUBLINGUAL Q5M PRN PRN Reason: CARDIAC/CHEST PAIN Oxycodone HCl (Oxyir) 5 mg PO Q4H PRN PRN PRN Reason: Pain Score 4-5/10 Pantoprazole Sodium (Protonix) 20 mg PO DAILY [facility] Last Admin: 09/26/19 08:31 Dose: 20 mg Documented by: Polyethylene Glycol (Miralax) 17 gm PO DAILY [facility] Last Admin: 09/26/19 08:40 Dose: 17 gm Documented by: Senna/Docusate Sodium (Senokot-S, Brionna-Colace) 2 tablet PO BID PRN PRN PRN Reason: Constipation Sodium Chloride () 10 - 40 ml IV UD PRN PRN Reason: SALINE FLUSH Ticagrelor (Brilinta) 90 mg PO BID JASON Last Admin: 09/26/19 08:36 Dose: 90 mg Documented by: STROKE Vital Signs/Narrative: Vital Signs Temp Pulse Resp BP Pulse Ox 09/26/19 14:35 98.2 F 64 18 145/71 H 95 09/26/19 11:14 66 Medical Necessity - Tobacco Use Smoking Status: Never smoker Assessment/Plan All Active Problems Chest pain (Acute) The patient is a 79 year old M with history of dyslipidemia, superficial thrombophlebitis in the right medial calf, came with chest pain which lasted less than 1 hour. He had a stress test in November 2011 and heart cath in 04/27/2012 and all were okay as per the patient. Patient had a stress test negative in 2008, 2011 and negative heart cath in 2011. [] EMS EKG shows normal sinus rhythm 58 bpm. In ER, EKG normal sinus rhythm with PACs at [address]-T changes to suggest ischemia. 1. Atypical chest pain, possible unstable angina with abnormal stress test: Patient is being admitted in PCU. Serial troponin enzymes were negative. Repeat EKG after 3 hours does not show significant ST-T changes suggestive of ischemia. Furthermore, pharmacological nuclear test was done which reported as pharmacologic induced left ventricular ischemia involving the inferior apical and apical segments. Preservation of resting LV myocardial systolic function. This was reported by Dr. Nish Delarosa. The stress test findings discussed with the recreational therapist Dr. South and requested for consult. 09/26: Patient is started on Brilinta yesterday after any frequent abnormal finding on stress test as mentioned above. Patient does not need nitrate or Lovenox therapeutic dose. Plan for heart cath tomorrow a.m. with Dr. Hurt. 2. Pozo's lung, hayfever: Patient chest x-ray independently reviewed. It shows fine reticular lines/chronic interstitial changes in both lower lung lozada. No acute abnormality. Chest x-ray report reviewed. 09/25: No acute shortness of breath, tachypnea or hypoxia. 09/26 is stable 3. GERD: On omeprazole 4. Possible mild BPH: Patient is not on Flomax or finasteride. In patients medical history paper, patient had rectal exam in August 2019 and listed as 40 g, smooth, symmetrical prostate. 09/25: Patient denies any increased frequency, urgency or burning micturition. Denies urinary retention. No acute intervention needed. 5. Dyslipidemia: Fasting blood draw was done. LDL 107, HDL 38, triglyceride 133. Patient further said he has history of hypoglycemia. Further concern will need outpatient evaluation. Currently glucoses 118 on BMP. 6. Slight abnormal TSH: TSH 3.99, on higher side of normal level. Free T4 normal. I do not see indication of starting on Synthroid. 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 The patient admission status is changed from observation to inpatient as he needs more than 2 midnight stays for chest pain and abnormal stress test. Total time of the visit including total time spent in counseling or coordination of care, (more than 50% of the total time, spent in obtaining medical information from nurses and other ancillary care providers), discussion with the patient and his , review of labs and imaging is 30 minutes Advance directive/CODE STATUS/living will: DNR CC arrest Patient has advanced directive form given by PCP but he has not filled up. When discussed about different options; full code, DNR CCA arrest and DNR CC, he wants DNR CC arrest. Patient does not want artificial life support including intubation, tube feed, ventilator and/chest compression. Laboratory Results 09/24/19 15:17: Troponin I < 0.015 09/24/19 18:26: Troponin I < 0.015 09/25/19 05:55: Sodium 140, Potassium 4.2, Chloride 111 H, Carbon Dioxide 25.0, Anion Gap 4 L, BUN 22 H, Creatinine 1.41 H, Estim Creat Clear Calc 49.94, Est GFR (MDRD) Af Amer 62, Est GFR (MDRD) Non-Af 51 L, BUN/Creatinine Ratio 15.6, Glucose 118 H, Calcium 9.0, Magnesium 2.2, Triglycerides 133, Cholesterol 172, LDL Cholesterol 107, VLDL Cholesterol 27, HDL Cholesterol 38 L, TSH 3.99 H 09/25/19 08:10: POC Glucose 85 09/25/19 12:50: WBC 5.9, RBC 3.41 L, Hgb 11.2 L, Hct 35.5 L, MCV 104.1 H, MCH 32.8 H, MCHC 31.5 L, RDW Std Deviation 49.6 H, RDW Coeff of Dimas 13.1, Plt Count 161, MPV 9.3, Immature Gran % (Auto) 0.200, Neut % (Auto) 60.9, Lymph % (Auto) 24.1, George % (Auto) 10.1 H, Eos % (Auto) 3.9, Baso % (Auto) 0.8, Absolute Neuts (auto) 3.6, Absolute Lymphs (auto) 1.43, Nucleated RBC % 0 Code Visit Inpatient E&M: 85816 Subs Hosp L2
--- NOTE | 2019-09-26 20:45 | CASEMGMT ---
Insurance review for In-network facilities for [employer] M[employer] insurance if transfer is recommended: [facility], [facility] ([facility]), [facility], [facility], [facility], and [facility]. Elsie BSN RN CM
[2019-09-26] MEDS: 0.9% Saline Lock 10 ML Syringe IV (20:55)
[2019-09-26] MEDS: hydrOXYzine 10 MG Tablet PO (20:57)
[2019-09-26] MEDS: Famotidine 20 MG Tablet 40 MG PO (20:59)
[2019-09-27] VITALS (13 sets, daily range): BP systolic 119–144; BP diastolic 55–75; PULSE 52–73; RESP 16–18; TEMP 36.4–36.9; O2SAT 94–97
--- NOTE | 2019-09-27 05:00 | EKG12_ITS ---
Test Reason : CP ADMISSION Blood Pressure : / mmHG Vent. Rate : 051 BPM Atrial Rate : 051 BPM P-R Int : 182 ms QRS Dur : 092 ms QT Int : 452 ms P-R-T Axes : 046 -12 053 degrees QTc Int : 416 ms Sinus bradycardia Otherwise normal ECG Confirmed by ALYCIA ZUNIGA, LISANDRA ([id number]), news assignment editor GUILLERMO KIRKPATRICK ([id number]) on 09/29/2019 11:12:28 AM Referred By: Max Bates Confirmed By:LISANDRA TONG MD
[2019-09-27 05:36] LABS: Absolute Lymphocyte Count 1.55 X10^3/uL (0.83-4.51); Absolute Neutrophil Count 3.5 X10^3/uL (2.0-7.7); Basophil# 0.04 X10^3/uL; Basophil% 0.7 % (0-1); Eosinophil# 0.26 X10^3/uL; Eosinophils% 4.3 % (0-5); Hematocrit 34.8 % (40-54); Lymphocyte # 1.55 X10^3/ul (4.0); Lymphocyte % 25.8 % (19-41); Mean Corp Hgb Conc 31.6 g/dL (32-36); Mean Corpuscular Hgb 32.5 pg (27.0-32.0); Mean Platelet Vol. 9.9 fl (6.2-12.0); Monocyte# 0.68 X10^3/uL; Monocyte% 11.3 % (0-10); NRBC Flagged by Analyzer 0 % (0-5); Neutrophil # 3.46 X10^3/uL (2.7-7.7); Neutrophil % 57.6 % (47-70); Platelet Count 174 K/mm3 (150-450); RBC Distribution Width CV 12.7 % (11.6-14.6); RBC Distribution Width SD 48.6 fl (35.1-43.9); Red Blood Count 3.38 M/mm3 (4.6-6.2)
[2019-09-27 05:52] LABS: International Normalized Ratio 1.1; Prothrombin Time (Protime)PT. 13.9 SECONDS (11.7-14.9)
[2019-09-27 05:53] LABS: Partial Thromboplast Time 31.8 Seconds (24.1-36.2)
[2019-09-27] MEDS: Aspirin E.C. 81 MG Tablet PO (05:58)
[2019-09-27] MEDS: TICAGRELOR 90 MG TABLET PO (05:58)
[2019-09-27 05:59] LABS: Anion Gap 4 (5-15); BUN 30 mg/dL (7-18); BUN/Creat Ratio 19.7 RATIO (10-20); Calcium,Total 8.7 mg/dL (8.5-10.1); Chloride 110 mmol/L (98-107); Creatinine, Serum 1.52 mg/dL (0.70-1.30); EST Glomerular Filtration Rate 47 mL/min (>60); Est Glom Filt Rate - Afr Amer 57 mL/min (>60); Estimated Creatinine Clearance 46.33 ml/min; Glucose 90 mg/dL (74-106); Potassium 4.1 mmol/L (3.5-5.1); Sodium Level 139 mmol/L (136-145)
--- NOTE | 2019-09-27 07:40 | CL.D_ITS ---
Patient Name: BUSHRA EDMONDSON Study Date: 09/27/2019 Performing: Blas Hurt MD Ht: 75 inches 191 cm : 1940 Wt: 223 lbs 101 kg Age: 79 Gender: male BSA: 2.3 PROCEDURE(S) PERFORMED DT70-RIP/COR/LV CLINICAL PROFILE AND INDICATIONS Indications: Suspected CAD Heart Failure: None Stress/Imaging Date: 09/25/2019 Angina Classification Anginal Classification w/in 2 Weeks: CCS III CAD Presentations: Unstable angina. CONCLUSIONS Normal Left Ventricular End Diastolic Pressure Normal LV size, wall motion,and systolic function LVEF: by LV gram 60 % Normal coronary arteries RECOMMENDATIONS Risk factor modification Medical therapy DESCRIPTION OF PROCEDURE The patient arrived to the procedure lab. The risks and benefits of the procedure as well as a full d escription of our services here and current unavailability of surgical backup were fully explained to the patient and/or their significant other prior to the catheterization. The Timeout was completed, verifying the correct patient and procedure. The patient's procedural site was prepped and draped in the usual fashion. Local anesthetic was given subcutaneously to right radial region with Lidocaine 2% . Using a modified Seldinger technique, arterial access was obtained via the right radial artery, a 6 Fr sheath was inserted. Left Coronary Artery selective angiography was performed in multiple views u sing a 5 Fr. 4.0 Warren catheter. Right Coronary Artery selective angiography was then performed in mu ltiple views using a 5 Fr. 4.0 Warren catheter. Left Ventriculography was performed in GRAYSON projection using a 5 Fr. Pigtail catheter. LV to AO pullback pressures were then recorded.The arterial sheath was pulled and a TR Band was applied for hemostasis CORONARY ANGIOGRAPHY DOMINANCE: Left Dominant LEFT HEART ASSESSMENT Left Ventricular Ejection Fraction: by LV Gram 60 % Normal LV wall motion Normal Left Ventricular End Diastolic Pressure LVEDP: 11 mmHg LEFT MAIN: Angiographically normal LEFT ANTERIOR DESCENDING ARTERY: Angiographically normal CIRCUMFLEX ARTERY: Angiographically normal RIGHT CORONARY ARTERY: Angiographically normal AORTIC ROOT: Angiographically normal COMPLICATIONS No Complications PROCEDURE MEDICATIONS Versed 1 mg IV Fentanyl 50 mcg IV Oxygen: 2 L/min via nasal cannula Heparin diluted in 23cc Heparinized saline. Patient given 10cc IA of this solution. 09/27/2019 07:11: 08 Verapamil 2.5mg, Ntg 100mcgs, 2000 units of Heparin diluted in 23cc Heparinized saline. Patient give n 10cc IA of this solution. 09/27/2019 07:11:08 SUMMARY OF HEMODYNAMIC DATA Time AIR REST ECG 06:51:08 AO 123/72 (93) SA 07:11:22 LV 136/-16, 10 07:16:48 LV 140/-15, 11 07:16:55 LV 139/-13, 19 07:17:46 LV 140/-12, 16 07:17:52 LVp 145/-14, 15 07:17:59 AOp 141/66 (95) 07:18:04 Signed By Blas Hurt MD On 09/27/2019 07:39:26 Blas Hurt MD
[2019-09-27] MEDS: 0.9% Normal Saline 1,000 ML 75 ML IV (07:48)
[2019-09-27] MEDS: Multivitamins,Ther W-Minerals Tablet 1 TABLET PO (08:27)
[2019-09-27] MEDS: Loratadine 10 MG Tablet PO (08:27)
[2019-09-27] MEDS: Ezetimibe 10 MG Tablet PO (08:27)
[2019-09-27] MEDS: Polyethylene Glycol 3350 17 GM PACKET PO (08:28)
[2019-09-27] MEDS: Pantoprazole Sodium 20 MG Tablet PO (08:28)
--- NOTE | 2019-09-27 09:53 | PCM.PN.CARD ---
Subjectve: The patient is status post diagnostic cardiac catheterization. He was not found to have angiographically significant appearing CAD. He has not had any new acute symptoms. Objective: Vital Signs Temp Pulse Resp BP Pulse Ox 98.2 F 54 L 16 132/70 H 95 09/27/19 09:00 09/27/19 09:00 09/27/19 09:00 09/27/19 09:30 09/27/19 09:00 Oxygen Delivery Method Room Air Weight: 221 lb 12.56 oz Body Mass Index (BMI) 27.7 Intake and Output for Last 24 Hours 09/25/19 09/26/19 09/27/19 23:59 23:59 23:59 Intake Total 1818.75 / 1818.75 170 / 1999 300 / 300 Balance 1818.75 / 1818.75 170 / 1999 300 / 300 General: Awake, Alert, Oriented x 3, Cooperative, No Acute Distress HEENT: Atraumatic, Normocephalic, PERRL, EOMI, Sclera Non Icteric Oral: Moist Mucosa Neck: Supple, Good ROM, No JVD Lungs: Clear to auscultation Cardiovascular: Regular Rhythm, Normal S1, Normal S2 Vascular: Normal Radial Pulses Abdomen: Bowel Sounds Present, Soft, Non Tender Extremities: No edema Psych/Mental Status: Appropriate 09/27/19 05:08: WBC 6.0, RBC 3.38 L, Hgb 11.0 L, Hct 34.8 L, MCV 103.0 H, MCH 32.5 H, MCHC 31.6 L, Plt Count 174, MPV 9.9, Immature Gran % (Auto) 0.300, Neut % (Auto) 57.6, Lymph % (Auto) 25.8, Stearns % (Auto) 11.3 H, Eos % (Auto) 4.3, Baso % (Auto) 0.7, Absolute Neuts (auto) 3.5, Nucleated RBC % 0 09/27/19 05:08: PT 13.9, INR 1.1, APTT 31.8 09/27/19 05:08: Sodium 139, Potassium 4.1, Chloride 110 H, Carbon Dioxide 25.0, Anion Gap 4 L, BUN 30 H, Creatinine 1.52 H, Est GFR (MDRD) Af Amer 57 L, Est GFR (MDRD) Non-Af 47 L, BUN/Creatinine Ratio 19.7, Glucose 90, Calcium 8.7 Rhythm: Sinus rhythm Cardiac Cath: CORONARY ANGIOGRAPHY DOMINANCE: Left Dominant LEFT HEART ASSESSMENT Left Ventricular Ejection Fraction: by LV Gram 60 % Normal LV wall motion Normal Left Ventricular End Diastolic Pressure LVEDP: 11 mmHg LEFT MAIN: Angiographically normal LEFT ANTERIOR DESCENDING ARTERY: Angiographically normal CIRCUMFLEX ARTERY: Angiographically normal RIGHT CORONARY ARTERY: Angiographically normal AORTIC ROOT: Angiographically normal Medical Necessity - Tobacco Use Smoking Status: Never smoker Assessment/Plan 1. Atypical chest pain The patient presented with chest discomfort. His cardiac enzymes have been negative. His ECG demonstrated no acute ECG changes. His stress nuclear imaging study, as interpreted by radiology, suggested inferior apical changes, thus, he was referred for further evaluation with diagnostic cardiac catheterization. This appeared to demonstrate angiographically normal-appearing coronary arteries and overall preserved left ventricular wall motion and systolic function. At the present time the patient should be considered for a non-CAD evaluation of his chest discomfort. He does have a history of gastroesophageal reflux disorder and thromboembolic disease. These diagnoses may need to be taken into consideration with his ongoing evaluation and care. 2. Dyslipidemia The patient has a history of dyslipidemia. He should continue risk factor evaluation/medical therapy as deemed appropriate. 3. GERD Again he has a history of GERD. This may need to be taken into consideration with respect to his ongoing symptoms. He may need reevaluation from a GI standpoint. 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 This may need to be taken into consideration with respect to his ongoing evaluation and care. Overall, from a cardiovascular standpoint he will continue risk factor modification care and continue his evaluation and care for non-CAD related issues of his chest discomfort per internal medicine. This note was generated using a voice recognition system and there may be incorrect words, spelling or punctuation that were not noted when reviewing the office note prior to saving.
--- NOTE | 2019-09-27 10:25 | CASEMGMT ---
RN CM CONTROL SYSTEMS ENGINEER CM to room to meet with patient for initial transition planning/care coordination assessment. GEOVANY GREENE introduced self and role at [facility]. Pt voices understanding and consents to assessment at this time. Pt sitting up in recliner chair in no distress at this time. in room visiting. Pt is A/O at this time and answers all questions appropriately. Care providers, pharmacy, and demographics verified/updated at this time. MENDOZA form also reviewed with pt/ at this time. They deny having any questions. Copy made and placed on chart and original given to pt. PCP: Dr Jeronimo Perez Specialists: Dr Mejia--nephrology Preferred Pharmacy: [facility] Insurance: [employer] Prescription Benefit: Yes Living Will/HPOA: Has both LW and Healthcare POA, who is his , Melanie. Copies not found on file @[facility]. Pt/ made aware. LNOK: , Melanie. Living Arrangements: Lives with his . Independent. Transportation: Pt states drives self and states no transportation concerns at this time. also drives DME: Has a cane that he uses on occasion. No other DME. Pt states no need for further DME at this time. HHC/SNF: No history of either. No needs identified. Pt wishes to return home and states has no concerns with going home at time of discharge. CM to follow for any discharge planning/needs. Pt/voice voices no concerns/needs at this time. Advised them to ask for CM if any further questions/concerns/needs arise. They voice understanding. PLAN: Home Elsie AVILES RN, CM
--- NOTE | 2019-09-27 11:58 | DCINST_ITS ---
- Discharge Diagnoses Current Active Problems: Current Active and Chronic Problems Chest pain (Acute) Reason(s) for Visit for Discharge Instructions: Chest pain You will use the following diet at home:: Cardiac Your food should be the consistency of: Regular Your liquids should be the consistency of: Regular/Thin Discharge Activity: Return to Normal Activity Additional Instructions: Continue to take all your medications as prescribed. Follow a heart healthy diet. Follow-up with your primary care doctor within 1-2 weeks. Allergies/Adverse Reactions: Allergies amoxicillin [From Augmentin] Adverse Reaction (Verified 09/24/19 11:44) Rash clavulanic acid [From Augmentin] Adverse Reaction (Verified 09/24/19 11:44) Rash Medications to take at Discharge Acetaminophen [Tylenol] 500 - 1,000 mg PO Q6H PRN PRN 08/02/17 Aspirin E.C. [Ecotrin] 81 mg PO DAILY@0800 08/02/17 Cetirizine HCl [Zyrtec] 10 mg PO DAILY 08/02/17 Dapsone 50 mg PO QHS 08/02/17 Ergocalciferol [Vitamin D] 50,000 unit PO QMONTH 08/02/17 Ezetimibe 10 mg PO DAILY 08/02/17 Famotidine 40 mg PO QHS 08/02/17 Fluticasone 0.05% [Flonase Nasal [place]] 2 spray NASAL QHS 08/02/17 Glucosamine Sulfate 1,500 mg PO QHS 08/02/17 Multivitamins,Ther W-Minerals [Multivitamin With Minerals] 1 tablet PO DAILY 08/02/17 Dupont-3 Fatty Acids/Fish Oil [Fish Oil 1,000 mg Capsule] 1 each PO BID 08/02/17 Polyethylene Glycol 3350 [Miralax] 17 gm PO DAILY 08/02/17 Vit C/E/Zn/Coppr/Lutein/Zeaxan [Preservision Areds 2 Softgel] 1 each PO BID 08/02/17 hydrOXYzine tablet [Atarax tablet] 10 mg PO QHS 08/02/17 Omeprazole 20 mg PO DAILY 09/24/19 Primary Care Physician: Jeronimo Perez MD [Primary Care Provider] - Please follow up with your Primary Care Physician in: within 1-2 weeks Test Results: Test results from this visit will be discussed in further detail at your follow- up appointment, if applicable. Proposed Discharge Date: 09/27/19
--- NOTE | 2019-09-27 12:00 | DS.PCM_ITS ---
Discharge Date and Diagnosis Date of Admission: 09/24/19 Date of Discharge: 09/27/19 - Primary Discharge Diagnosis Chest pain (Acute) - Secondary Discharge Diagnosis Chronic Problems Amnesia (retrograde) (Chronic) Shoulder pain (Chronic) Pure hypercholesterolemia (Chronic) Hx of venous thrombosis and embolism (Chronic) Esophageal reflux (Chronic) Hospital Course and Treatment Imaging Results: Clinical Impression(s) from Imaging Studies Chest X-Ray 09/24/19 11:43 IMPRESSION: No acute abnormality is seen. Electronically Signed: Milton Kristen, at 12:16 EST , Service support , Stress Test Nuclear Medicine 09/25/19 05:55 IMPRESSION: 1. ABNORMAL REST-REGADENOSON STRESS 99m Tc SESTAMIBI MYOCARDIAL PERFUSION SPECT. A. Pharmacologic-induced left ventricular ischemia involving the inferoapical and apical segments. B. Preservation of resting left ventricular myocardial systolic function. (Maria M et al, J Nucl Med 37: 105P, 1995). C. In a registry of 1,511 patients > 80 years of age demonstrating moderate cardiac perfusion defect scores at myocardial perfusion SPECT imaging accomplished at the [facility] or [facility], patients demonstrated a greater than 3% annualized incidence of cardiac . (Noel et al, [facility] 490A, 1999). 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 His chest pain was described as pressure-like, heavy, associated with some lightheadedness. His admitting EKG showed normal sinus rhythm, no signs of acute ischemia. His troponins were negative. Patient underwent nuclear stress test was reported as ST-T wave of left ventricular ischemia involving the inferior apical and apical segments. Patient underwent cardiac cath that showed no abnormalities. Patient remained chest pain-free. No acute events on the day of discharge. Follow-up with his primary care doctor within 1 to 2 weeks recommended. Subjective: On the day of discharge, patient was seen and examined. No new complaints. - Physical Exam Vitals/I&O's: Vital Signs Temp Pulse Resp BP Pulse Ox 97.6 F L 66 16 131/74 H 96 09/27/19 10:30 09/27/19 10:30 09/27/19 10:30 09/27/19 10:30 09/27/19 10:30 Oxygen Delivery Method Room Air Weight: 100.6 kg Body Mass Index (BMI) 27.7 Intake and Output for Last 24 Hours 09/25/19 09/26/19 09/27/19 23:59 23:59 23:59 Intake Total 1818.75 / 1818.75 170 / 1999 300 / 300 Balance 1818.75 / 1818.75 170 / 1999 300 / 300 General: Alert, Oriented x3, Cooperative, No apparent distress HEENT: Atraumatic, PERRLA, EOMI, Normocephalic Neck: Supple Lungs: Clear to auscultation, Normal air movement Cardiovascular: Regular rate, Regular Rhythm, Normal S1, Normal S2, No murmurs Abdomen: Bowel Sounds Present, Soft, Non Tender, Non-Distended, No Hepato- splenomegaly Extremities: No edema Skin: No rashes, No breakdown Musculoskeletal: No Tenderness to Palpation of Joints or Extremities Lymphatic: No Cervical, Supraclavicular, or Inguinal Adenopathy Neurological: Cranial nerves II-XII grossly intact, Neuro grossly intact Psych/Mental Status: Normal Affect, Appropriate Laboratory Results 09/27/19 05:08: WBC 6.0, RBC 3.38 L, Hgb 11.0 L, Hct 34.8 L, MCV 103.0 H, MCH 32.5 H, MCHC 31.6 L, RDW Std Deviation 48.6 H, RDW Coeff of Dimas 12.7, Plt Count 174, MPV 9.9, Immature Gran % (Auto) 0.300, Neut % (Auto) 57.6, Lymph % (Auto) 25.8, K[place] % (Auto) 11.3 H, Eos % (Auto) 4.3, Baso % (Auto) 0.7, Absolute Neuts (auto) 3.5, Absolute Lymphs (auto) 1.55, Nucleated RBC % 0 09/27/19 05:08: PT 13.9, INR 1.1, APTT 31.8 09/27/19 05:08: Sodium 139, Potassium 4.1, Chloride 110 H, Carbon Dioxide 25.0, Anion Gap 4 L, BUN 30 H, Creatinine 1.52 H, Estim Creat Clear Calc 46.33, Est GFR (MDRD) Af Amer 57 L, Est GFR (MDRD) Non-Af 47 L, BUN/Creatinine Ratio 19.7, Glucose 90, Calcium 8.7 Current Medications Acetaminophen (Tylenol) 650 mg PO Q6H PRN PRN PRN Reason: Pain Score 1-3/Temp > 100.7 F Aspirin (Ecotrin) 81 mg PO DAILY@0800 [facility] Last Admin: 09/27/19 05:58 Dose: 81 mg Documented by: Dapsone (Dapsone) 50 mg PO QHS [facility] Last Admin: 09/26/19 20:55 Dose: 50 mg Documented by: Ezetimibe (Zetia) 10 mg PO DAILY [facility] Last Admin: 09/27/19 08:27 Dose: 10 mg Documented by: Famotidine (Pepcid) 40 mg PO QHS [facility] Last Admin: 09/26/19 20:59 Dose: 40 mg Documented by: Fluticasone Propionate ([facility]ase Nasal [place]) [facility] Last Admin: 09/26/19 20:56 Dose: Not Given Documented by: Glucagon () 1 mg IM .X1 PRN PRN Reason: Hypoglycemia Hydroxyzine HCl (Atarax Tablet) 10 mg PO QHS [facility] Last Admin: 09/26/19 20:57 Dose: 10 mg Documented by: Dextrose (Dextrose 10%-Water) 250 mls @ 999 mls/hr IV .Q16M PRN; Protocol PRN Reason: HYPOGLYCEMIA Sodium Chloride () 500 mls @ 15 mls/hr IV PRN PRN PRN Reason: Blood Transfusion Sodium Chloride () 250 mls @ 15 mls/hr IV .[id number] PRN PRN Reason: Saline Flush Sodium Chloride () 250 mls @ 15 mls/hr IV .[id number] PRN PRN Reason: Additional IVPB Infusion Sodium Chloride () 1,000 mls @ 0 mls/hr IV .Q0M [facility] Loratadine (Claritin) 10 mg PO DAILY [facility] Last Admin: 09/27/19 08:27 Dose: 10 mg Documented by: Morphine Sulfate () 2 mg IV Q3H PRN PRN PRN Reason: Pain Score 6-10/10 Multivitamins/Minerals ([facility]ivitamin With Minerals) [facility] Admin: 09/27/19 08:27 Dose: 1 tablet Documented by: Nitroglycerin (Nitrostat) 0.4 mg SUBLINGUAL Q5M PRN PRN Reason: CARDIAC/CHEST PAIN Oxycodone HCl (Oxyir) 5 mg PO Q4H PRN PRN PRN Reason: Pain Score 4-5/10 Pantoprazole Sodium (Protonix) 20 mg PO DAILY [facility] Last Admin: 09/27/19 08:28 Dose: 20 mg Documented by: Polyethylene Glycol (Miralax) 17 gm PO DAILY [facility] Last Admin: 09/27/19 08:28 Dose: 17 gm Documented by: Senna/Docusate Sodium (Senokot-S, Brionna-Colace) 2 tablet PO BID PRN PRN PRN Reason: Constipation Sodium Chloride () 10 - 40 ml IV UD PRN PRN Reason: SALINE FLUSH Last Admin: 09/26/19 20:55 Dose: 10 ml Documented by: Discharge Diet: Low fat/ Low Cholesterol, 2000 mg Sodium Diet Discharge Activity: Return to Normal Activity Home Medications: Medications to take at Discharge Acetaminophen [Tylenol] 500 - 1,000 mg PO Q6H PRN PRN 08/02/17 Aspirin E.C. [Ecotrin] 81 mg PO DAILY@0800 08/02/17 Cetirizine HCl [Zyrtec] 10 mg PO DAILY 08/02/17 Dapsone 50 mg PO QHS 08/02/17 Ergocalciferol [Vitamin D] 50,000 unit PO QMONTH 08/02/17 Ezetimibe 10 mg PO DAILY 08/02/17 Famotidine 40 mg PO QHS 08/02/17 Fluticasone 0.05% [Flonase Nasal [place]] 2 spray NASAL QHS 08/02/17 Glucosamine Sulfate 1,500 mg PO QHS 08/02/17 Multivitamins,Ther W-Minerals [Multivitamin With Minerals] 1 tablet PO DAILY 08/02/17 [place]-3 Fatty Acids/Fish Oil [Fish Oil 1,000 mg Capsule] 1 each PO BID 08/02/17 Polyethylene Glycol 3350 [Miralax] 17 gm PO DAILY 08/02/17 Vit C/E/Zn/Coppr/Lutein/Zeaxan [Preservision Areds 2 Softgel] 1 each PO BID 08/02/17 hydrOXYzine tablet [Atarax tablet] 10 mg PO QHS 08/02/17 Omeprazole 20 mg PO DAILY 09/24/19 Primary Care Physician: Jeronimo Perez MD [Primary Care Provider] - Please follow up with your Primary Care Physician in: within 1-2 weeks Disposition: Home Minutes spent on discharge:: 40 Patient Condition:: Stable Medical Necessity - Tobacco Use Smoking Status: Never smoker Tobacco Use: Non-smoker Meaningful Use Info Meaningful Use Diagnoses (Choose all that apply): None applicable Code Visit OBSV E&M: 44740 Observation care discharge
--- NOTE | 2019-09-27 12:09 | PHA.DC.MR ---
Pharmacy Service has performed discharge medication reconciliation for this patient. No new medications issued at time of discharge, medications reviewed are previously reported home medications. Home Medications Acetaminophen [Tylenol] 500 - 1,000 mg PO Q6H PRN PRN 08/02/17 Aspirin E.C. [Ecotrin] 81 mg PO DAILY@0800 08/02/17 Cetirizine HCl [Zyrtec] 10 mg PO DAILY 08/02/17 Dapsone 50 mg PO QHS 08/02/17 Ergocalciferol [Vitamin D] 50,000 unit PO QMONTH 08/02/17 Ezetimibe 10 mg PO DAILY 08/02/17 Famotidine 40 mg PO QHS 08/02/17 Fluticasone 0.05% [Flonase Nasal [place]] 2 spray NASAL QHS 08/02/17 Glucosamine Sulfate 1,500 mg PO QHS 08/02/17 Multivitamins,Ther W-Minerals [Multivitamin With Minerals] 1 tablet PO DAILY 08/02/17 [place]-3 Fatty Acids/Fish Oil [Fish Oil 1,000 mg Capsule] 1 each PO BID 08/02/17 Polyethylene Glycol 3350 [Miralax] 17 gm PO DAILY 08/02/17 Vit C/E/Zn/Coppr/Lutein/Zeaxan [Preservision Areds 2 Softgel] 1 each PO BID 08/02/17 hydrOXYzine tablet [Atarax tablet] 10 mg PO QHS 08/02/17 Omeprazole 20 mg PO DAILY 09/24/19 The patient's discharge medication list was reviewed for discrepancies and discrepancies were resolved.
== END 2019-09-27 11:56 | disposition home or self-care (01) ==
LOC: ED 13:05 → PCU 13:25
PROVIDERS: Family Medicine; Admitting Provider Internal Medicine; Emergency Provider Emergency Medicine; PCP Family Medicine; Referring Provider Internal Medicine; Visit Provider Internal Medicine
DX: R07.89 Other chest pain (principal); R94.39 Abnormal result of other cardiovascular function study; K21.9 Gastro-esophageal reflux disease without esophagitis; R00.1 Bradycardia, unspecified; G89.29 Other chronic pain; E78.5 Hyperlipidemia, unspecified; J67.0 Farmer's lung; L13.0 Dermatitis herpetiformis; G25.0 Essential tremor; R41.2 Retrograde amnesia; M19.90 Unspecified osteoarthritis, unspecified site; Z86.711 Personal history of pulmonary embolism; Z79.899 Other long term (current) drug therapy; Z79.51 Long term (current) use of inhaled steroids; Z79.82 Long term (current) use of aspirin
CPT/HCPCS: 36415; 71045; 78452; 80048; 80061; 82962; 83735; 84439; 84443; 84484; 85025; 85610; 85730; 93005; 93017; 93458; 96360; 96361; 96372; 99152; 99153; 99218; 99251; 99285; A9500; J7030; J7120; A4216; C1769; C1894; G0378; G0463; J2785; Q9967

== ENCOUNTER → 2020-07-28 13:32 | Outpatient (CLI) | payer MEDICARE, SELFPAY ==
[2019-09-24 14:33] VITALS: BMI 27.7
[2020-07-28 16:14] LABS: BUN 30 mg/dL (7-18); BUN/Creat Ratio 20.5 RATIO (10-20); Calcium,Total 8.9 mg/dL (8.5-10.1); Chloride 108 mmol/L (98-107); Creatinine, Serum 1.46 mg/dL (0.70-1.30); EST Glomerular Filtration Rate 49 mL/min (>60); Est Glom Filt Rate - Afr Amer 60 mL/min (>60); Glucose 68 mg/dL (74-106); Phosphorus 3.6 mg/dL (2.5-4.9); Potassium 4.8 mmol/L (3.5-5.1); Sodium Level 139 mmol/L (136-145)
== END ==
PROVIDERS: Family Provider Family Medicine; PCP Family Medicine; Visit Provider Internal Medicine Nephrology
DX: N18.30 Chronic kidney disease, stage 3 unspecified (principal)
CPT/HCPCS: 36415; 80069

== ENCOUNTER → 2020-08-29 07:47 | Outpatient (CLI) | payer MEDICARE, SELFPAY ==
[2019-09-24 14:33] VITALS: BMI 27.7
[2020-08-29 08:36] LABS: Absolute Lymphocyte Count 1.41 X10^3/uL (0.83-4.51); Absolute Neutrophil Count 2.7 X10^3/uL (2.0-7.7); Basophil# 0.06 X10^3/uL; Basophil% 1.1 % (0-1); Eosinophil# 0.45 X10^3/uL; Eosinophils% 8.6 % (0-5); Hematocrit 36.9 % (40-54); Hemoglobin 11.8 g/dL (13.0-16.5); Lymphocyte # 1.41 X10^3/ul (4.0); Mean Corpuscular Hgb 33.4 pg (27.0-32.0); Mean Corpuscular Volume 104.5 fL (80-94); Mean Platelet Vol. 9.5 fl (6.2-12.0); Monocyte# 0.64 X10^3/uL; Monocyte% 12.2 % (0-10); NRBC Flagged by Analyzer 0 % (0-5); Neutrophil # 2.66 X10^3/uL (2.7-7.7); Neutrophil % 50.9 % (47-70); Platelet Count 188 K/mm3 (150-450); RBC Distribution Width CV 12.8 % (11.6-14.6); RBC Distribution Width SD 48.9 fl (35.1-43.9); Red Blood Count 3.53 M/mm3 (4.6-6.2); White Blood Count 5.2 K/mm3 (4.4-11.0)
[2020-08-29 09:06] LABS: ALB/GLOB Ratio 1.1 RATIO (0.9-2.4); AST(SGOT) 20 U/L (15-37); Alanine Aminotransfer ALT/SGPT 25 U/L (16-61); Albumin, Serum 3.8 g/dL (3.2-5.0); Alkaline Phosphatase 58 U/L (45-117); Anion Gap 1 (5-15); BUN 29 mg/dL (7-18); BUN/Creat Ratio 20.6 RATIO (10-20); Calcium,Total 8.8 mg/dL (8.5-10.1); Chloride 111 mmol/L (98-107); Cholesterol 179 mg/dL (200); Creatinine, Serum 1.41 mg/dL (0.70-1.30); EST Glomerular Filtration Rate 51 mL/min (>60); Est Glom Filt Rate - Afr Amer 62 mL/min (>60); Globulin 3.5 g/dL (2.2-4.2); Glucose 84 mg/dL (74-106); High Density Lipoprotein 39 mg/dL; PSA,Total - Annual Screen 0.73 ng/mL (0.00-4.00); Potassium 4.6 mmol/L (3.5-5.1); Protein, Total 7.3 g/dL (6.4-8.2); Sodium Level 141 mmol/L (136-145); Triglycerides 94 mg/dL; Very Low Density Lipoprotein 19 mg/dL (5-40)
== END ==
PROVIDERS: PCP Family Medicine; Referring Provider Family Medicine; Visit Provider Family Medicine
DX: D64.9 Anemia, unspecified (principal); K90.9 Intestinal malabsorption, unspecified; N18.30 Chronic kidney disease, stage 3 unspecified; Z12.5 Encounter for screening for malignant neoplasm of prostate
CPT/HCPCS: 36415; 80053; 80061; 84153; 85025; G0103

== ENCOUNTER → 2020-09-12 12:55 | Outpatient (CLI) | payer MEDICARE, SELFPAY ==
[2019-09-24 14:33] VITALS: BMI 27.7
--- NOTE | 2020-09-12 13:01 | BD_ITS ---
STUDY: DUAL ENERGY X-RAY ABSORPTIOMETRY / DXA REASON FOR EXAM: Male, 80 years old. MALABSORPTION -- TAKES CALCIUM AND MULTIVITAMIN -- DOES MODERATE AMOUNT OF EXERCISE -- FERNANDO OF 1.5 INCHES TECHNIQUE: Bone Mineral Density (BMD) measurements of lumbar spine and bilateral hips were obtained. COMPARISON: None. FINDINGS: Lumbar Spine (L1-L4): g/cm2 (1.508) / T-score (2.6) / Z-score (3.3) Findings are suggestive of normal bone density with a low fracture risk. Left Femur Total: g/cm2 (1.272) / T-score (1.2) / Z-score (2.4) Left Femoral Neck: g/cm2 (1.090) / T-score (0.2) / Z-score (1.7) Right Femur Total: g/cm2 (1.229) / T-score (0.9) / Z-score (2.1) Right Femoral Neck: g/cm2 (1.129) / T-score (0.5) / Z-score (2.0) BD/Dexa Bone Density Study IMPRESSION: The patient is considered normal as outlined below according to World Jadon Organization (WHO) criteria with a low fracture risk. Reference Information: The T-score is the number of standard deviations above or below the standard which is normal for young adults at their peak bone mineral density. The World Health Organization (WHO) interprets the T-scores as follows: Above -1 Normal bone density Between -1 and -2.5 Osteopenia Equal to / or below -2.5 Osteoporosis As a practical clinical guideline, osteopenia may be graded as follows: Mild -1 through -1.5 Moderate -1.6 through -2.0 Severe -2.1 through -2.4 The Z-score is the number of standard deviations above or below age-matched controls. A Z-score of less than -1.5 would be considered abnormal. References: 1. NIH Osteoporosis and Related Bone Diseases www osteo.org 2. International Society for Clinical Densitometry www iscd.org 3. National Osteoporosis Foundation www nof.org Electronically Signed: Milton Peterson, at 15:13 EST , Service support ,
== END ==
PROVIDERS: PCP Family Medicine; Referring Provider Family Medicine; Visit Provider Family Medicine
DX: K90.9 Intestinal malabsorption, unspecified (principal); M85.88 Other specified disorders of bone density and structure, other site
CPT/HCPCS: 77080

== ENCOUNTER → 2021-02-02 14:01 | Outpatient (CLI) | payer MEDICARE, SELFPAY ==
[2019-09-24 14:33] VITALS: BMI 27.7
[2021-02-02 14:53] LABS: Absolute Lymphocyte Count 1.48 X10^3/uL (0.83-4.51); Absolute Neutrophil Count 3.3 X10^3/uL (2.0-7.7); Basophil# 0.05 X10^3/uL; Basophil% 0.8 % (0-1); Eosinophil# 0.41 X10^3/uL; Eosinophils% 6.9 % (0-5); Hematocrit 36.1 % (40-54); Hemoglobin 11.4 g/dL (13.0-16.5); Lymphocyte # 1.48 X10^3/ul (0.83-4.51); Mean Corp Hgb Conc 31.6 g/dL (32-36); Mean Corpuscular Hgb 33.2 pg (27.0-32.0); Mean Corpuscular Volume 105.2 fL (80-94); Mean Platelet Vol. 9.5 fl (6.2-12.0); Monocyte# 0.63 X10^3/uL; Monocyte% 10.7 % (0-10); NRBC Flagged by Analyzer 0 % (0-5); Neutrophil # 3.33 X10^3/uL (2.7-7.7); Neutrophil % 56.4 % (47-70); Platelet Count 192 K/mm3 (150-450); Red Blood Count 3.43 M/mm3 (4.6-6.2); White Blood Count 5.9 K/mm3 (4.4-11.0)
[2021-02-02 15:25] LABS: Vitamin B12 1085 pg/mL (211-911); Vitamin D,25 Hydroxy 42.5 ng/mL
[2021-02-02 16:03] LABS: ALB/GLOB Ratio 1.2 RATIO (0.9-2.4); AST(SGOT) 27 U/L (15-37); Alanine Aminotransfer ALT/SGPT 26 U/L (16-61); Albumin, Serum 3.8 g/dL (3.2-5.0); Alkaline Phosphatase 53 U/L (45-117); Anion Gap 5 (5-15); BUN 30 mg/dL (7-18); BUN/Creat Ratio 19.4 RATIO (10-20); Calcium,Total 8.7 mg/dL (8.5-10.1); Chloride 109 mmol/L (98-107); Creatinine, Serum 1.55 mg/dL (0.70-1.30); EST Glomerular Filtration Rate 46 mL/min (>60); Est Glom Filt Rate - Afr Amer 56 mL/min (>60); Ferritin 79 ng/mL (26-388); Globulin 3.3 g/dL (2.2-4.2); Glucose 97 mg/dL (74-106); Potassium 4.7 mmol/L (3.5-5.1); Protein, Total 7.1 g/dL (6.4-8.2); Sodium Level 140 mmol/L (136-145); Thyroid Stim Hormone (TSH) 4.41 uIU/mL (0.358-3.74)
== END ==
LOC: LAB 14:03 → LAB.FUTURE 15:16
PROVIDERS: PCP Family Medicine; Referring Provider Family Medicine; Visit Provider Family Medicine
DX: G62.9 Polyneuropathy, unspecified (principal); N18.30 Chronic kidney disease, stage 3 unspecified; D63.1 Anemia in chronic kidney disease
CPT/HCPCS: 36415; 80053; 82140; 82306; 82607; 82728; 82746; 84443; 85025

== ENCOUNTER → 2021-02-06 | Outpatient (CLI) | payer MEDICARE, SELFPAY ==
[2019-09-24 14:33] VITALS: BMI 27.7
[2021-02-06 12:11] LABS: Microalbumin:Creatinine Ratio 61.1 mg/g CRE (<30 mg/g CRE)
== END | disposition home or self-care (01) ==
LOC: LABSPEC 11:00
PROVIDERS: PCP Family Medicine; Referring Provider Family Medicine; Visit Provider Family Medicine
DX: G62.9 Polyneuropathy, unspecified (principal); N18.30 Chronic kidney disease, stage 3 unspecified; D63.1 Anemia in chronic kidney disease
CPT/HCPCS: 82043; 82570

== ENCOUNTER 2021-06-19 13:44 | Outpatient (CLI) | payer MEDICARE, SELFPAY ==
[2021-06-19] MEDS: 0.9% Saline Lock 10 ML Syringe IV (14:04)
[2021-06-19 14:05] VITALS: BP 114/55; PULSE 64; RESP 16; TEMP 36.7; O2SAT 97; BMI 27.6
[2021-06-19 14:41] VITALS: BP 115/56; PULSE 58; RESP 16; TEMP 36.7; O2SAT 97
[2021-06-19 15:39] VITALS: BP 129/51; PULSE 56; RESP 16; TEMP 36.6; O2SAT 100
== END 2021-06-19 15:43 | disposition home or self-care (01) ==
LOC: MS3OUT 13:44 → MS3 13:45
PROVIDERS: PCP Family Medicine; Referring Provider Nurse Practitioner Adult Health; Visit Provider Nurse Practitioner Adult Health
DX: U07.1 COVID-19 (principal)
CPT/HCPCS: J7050; M0243; A4216; Q0240

== ENCOUNTER → 2021-07-10 11:16 | Outpatient (CLI) | payer MEDICARE, SELFPAY ==
[2019-09-24 14:33] VITALS: BMI 27.7
[2021-07-10 11:45] LABS: Hemoglobin 10.9 g/dL (13.0-16.5); Mean Corp Hgb Conc 32.1 g/dL (32-36); Mean Corpuscular Hgb 33.7 pg (27.0-32.0); Mean Corpuscular Volume 105.3 fL (80-94); Mean Platelet Vol. 9.4 fl (6.2-12.0); Platelet Count 193 K/mm3 (150-450); RBC Distribution Width CV 13.2 % (11.6-14.6); Red Blood Count 3.23 M/mm3 (4.6-6.2); White Blood Count 4.7 K/mm3 (4.4-11.0)
[2021-07-10 12:07] LABS: Albumin, Serum 3.7 g/dL (3.2-5.0); BUN 28 mg/dL (7-18); BUN/Creat Ratio 17.9 RATIO (10-20); Calcium,Total 9.2 mg/dL (8.5-10.1); Chloride 108 mmol/L (98-107); Creatinine, Serum 1.56 mg/dL (0.70-1.30); EST Glomerular Filtration Rate 46 mL/min (>60); Est Glom Filt Rate - Afr Amer 55 mL/min (>60); Glucose 94 mg/dL (74-106); Phosphorus 3.6 mg/dL (2.5-4.9); Potassium 4.7 mmol/L (3.5-5.1); Sodium Level 138 mmol/L (136-145)
[2021-07-10 12:11] LABS: Vitamin D,25 Hydroxy 48.1 ng/mL
== END ==
PROVIDERS: PCP Family Medicine; Referring Provider Internal Medicine Nephrology; Visit Provider Internal Medicine Nephrology
DX: N18.31 Chronic kidney disease, stage 3a (principal); E55.9 Vitamin D deficiency, unspecified
CPT/HCPCS: 36415; 80069; 82306; 83970; 85027

== ENCOUNTER 2021-12-18 14:04 | Outpatient (CLI) | payer MEDICARE, SELFPAY ==
[2021-12-18 15:21] LABS: Absolute Lymphocyte Count 1.41 X10^3/uL (0.83-4.51); Absolute Neutrophil Count 3.5 X10^3/uL (2.0-7.7); Basophil# 0.06 X10^3/uL; Eosinophil# 0.39 X10^3/uL; Eosinophils% 6.4 % (0-5); Hemoglobin 11.6 g/dL (13.0-16.5); Lymphocyte # 1.41 X10^3/ul (0.83-4.51); Lymphocyte % 23.3 % (19-41); Mean Corp Hgb Conc 32.2 g/dL (32-36); Mean Corpuscular Hgb 33.1 pg (27.0-32.0); Mean Corpuscular Volume 102.9 fL (80-94); Mean Platelet Vol. 10.2 fl (6.2-12.0); Monocyte# 0.72 X10^3/uL; Monocyte% 11.9 % (0-10); NRBC Flagged by Analyzer 0 % (0-5); Neutrophil # 3.46 X10^3/uL (2.7-7.7); Neutrophil % 57.2 % (47-70); Platelet Count 208 K/mm3 (150-450); RBC Distribution Width SD 49.3 fl (35.1-43.9); White Blood Count 6.1 K/mm3 (4.4-11.0)
[2021-12-18 16:00] LABS: ALB/GLOB Ratio 1.3 RATIO (0.9-2.4); AST(SGOT) 24 U/L (15-37); Alanine Aminotransfer ALT/SGPT 25 U/L (16-61); Alkaline Phosphatase 61 U/L (45-117); Anion Gap 6 (5-15); BUN 29 mg/dL (7-18); BUN/Creat Ratio 20.1 RATIO (10-20); Calcium,Total 8.7 mg/dL (8.5-10.1); Chloride 106 mmol/L (98-107); Creatinine, Serum 1.44 mg/dL (0.70-1.30); EST Glomerular Filtration Rate 50 mL/min (>60); Est Glom Filt Rate - Afr Amer 60 mL/min (>60); Glucose 87 mg/dL (74-106); Potassium 4.8 mmol/L (3.5-5.1); Sodium Level 139 mmol/L (136-145)
== END 2021-12-18 23:59 | disposition home or self-care (01) ==
PROVIDERS: PCP Family Medicine; Referring Provider Family Medicine; Visit Provider Family Medicine
DX: N18.30 Chronic kidney disease, stage 3 unspecified (principal)
CPT/HCPCS: 36415; 80053; 85025

== ENCOUNTER 2022-02-12 08:44 | Outpatient (RCR) | payer MEDICARE, SELFPAY ==
--- NOTE | 2022-02-12 10:44 | HP.PTEVAL_ITS ---
Patient's Visit Information BUSHRA EDMONDSON is a 82 year old M referred to Physical Therapy by Dr. Jeronimo Perez MD with a diagnosis of L IT band syndrome. Date of Evaluation: 02/12/22 Physical Therapist: Kike Gomez, PT, ATC - Visit Plan Frequency: 1x/Week Duration: 2 Weeks Plan: Issued and instructed pt on IT band stretches. Pt is now I with them. Pt to follow up or DC in one month after trying I - Subjective Pt reports he began to experience pain in L knee about 2 weeks ago. 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 Pt reports as he got home, he noticed severe pain that kept worsening as the evening went on. Pt reports he saw his Dr who ordered a steroid which has helped his pain some. Pt notes he has had this pain in the past prior to this episode. Pt reports no recent xrays. Pt reports no sleep difficulty at this time secondary to pain. Pt reports he like to walk at home on a daily basis, and is limited from doing that at this time. Pt also reports he has more difficulty wit h sit to stand at this time secondary to pain. 1/10 pain while sitting at rest, 7/10 pain at worst - Pain L lat knee pain Pain Intensity (Out of 10): 1 Pain Intensity Range: 7 - Objective Neuro: B LE sensation is WNL to light touch. B patellar reflex= 1/3. ROM: B LE's are WFL at this time. MMT: B LE's are grossly 4-/5 throughout. Gait: Pt ambulates with ma slower cadance. Special tests: Pos IT band tightness - Balance/Special Test Scores Lower Extremity Functional Score: 35 - Goals Goal 1:: Decrease L knee pain x 50% to aid with ambulation Goal Time Frame: 4 weeks Goal 2:: I with HEP Goal Time Frame: 4 weeks - Rehabilitation Potential Physical Therapy Diagnosis: Pt had L knee pain secondary to L knee IT band syndrome Rehabilitation Potential: Good - Anticipated Interventions Patient/Client Instruction: Educate patient on: Condition, Plan of Care For the Purpose of:: To improve self management Therapeutic Exercise to Include: Strength training, Flexibilty training, Dynamic Lumbar Stabilization For the Purpose of:: To decrease pain, To improve muscle performance and motor function Thank you for the opportunity to evaluate your patient. For Medicare and Medicare HMO plans, please review the plan of care and approve it. It will need to be FAXED BACK to us at [phone] for Medicare purposes. For Medicare only, by signing this I certify the plan of care. Please let me know if there are questions or concerns regarding this plan of care. Physician Signature: __Date:
--- NOTE | 2022-03-01 07:26 | HP.PT.NRP ---
BUSHRA EDMONDSON was seen in my office for initial evaluation on 02/12/22. The following Plan of Care was established for this patient: Initial Frequency: 1x/Week Initial Duration: 2 Weeks Patient/Client Instruction: Educate patient on: Condition, Plan of Care For the Purpose of:: To improve self management Therapeutic Exercise to Include: Strength training, Flexibilty training, Dynamic Lumbar Stabilization For the Purpose of:: To decrease pain, To improve muscle performance and motor function This patient was last seen in our office . Pertinent comments regarding their Physical therapy will appear below: Pt was evaluated for L knee pain on 02/12/22. Pt phoned the clinic to report he was feeling good and didnt feel the need for further PT. Pt is discharged at this artis. At this point I will be discontinuing this patient from physical therapy. I would be happy to see this patient again in the future if found appropriate by the physician. Thank you! Kike Gomez, PT, ATC Balance/Gait/Functional tests - Balance/Special Test Scores Lower Extremity Functional Score: 35
== END 2022-02-12 19:00 | disposition home or self-care (01) ==
LOC: PT 08:44
PROVIDERS: PCP Family Medicine; Referring Provider Family Medicine; Visit Provider Family Medicine
DX: M76.32 Iliotibial band syndrome, left leg (principal); M25.562 Pain in left knee
CPT/HCPCS: 97110; 97161

== ENCOUNTER → 2022-02-20 | Outpatient (CLI) | payer MEDICARE, SELFPAY ==
[2022-02-20 07:45] LABS: Absolute Lymphocyte Count 1.54 X10^3/uL (0.83-4.51); Absolute Neutrophil Count 2.8 X10^3/uL (2.0-7.7); Basophil# 0.06 X10^3/uL; Basophil% 1.1 % (0-1); Eosinophil# 0.29 X10^3/uL; Eosinophils% 5.3 % (0-5); Hemoglobin 11.6 g/dL (13.0-16.5); Lymphocyte # 1.54 X10^3/ul (0.83-4.51); Lymphocyte % 28.4 % (19-41); Mean Corp Hgb Conc 32.2 g/dL (32-36); Mean Corpuscular Hgb 33.6 pg (27.0-32.0); Mean Corpuscular Volume 104.3 fL (80-94); Mean Platelet Vol. 9.1 fl (6.2-12.0); Monocyte% 12.9 % (0-10); NRBC Flagged by Analyzer 0 % (0-5); Neutrophil # 2.83 X10^3/uL (2.7-7.7); Neutrophil % 52.1 % (47-70); Platelet Count 194 K/mm3 (150-450); RBC Distribution Width CV 12.9 % (11.6-14.6); RBC Distribution Width SD 49.3 fl (35.1-43.9); Red Blood Count 3.45 M/mm3 (4.6-6.2); White Blood Count 5.4 K/mm3 (4.4-11.0)
[2022-02-20 10:04] LABS: Cholesterol 181 mg/dL (200); Ferritin 88 ng/mL (26-388); High Density Lipoprotein 39 mg/dL; T4 Free Direct 0.97 ng/dL (0.76-1.46); Triglycerides 120 mg/dL; Very Low Density Lipoprotein 24 mg/dL (5-40)
== END | disposition home or self-care (01) ==
PROVIDERS: PCP Family Medicine; Visit Provider Family Medicine
DX: D64.9 Anemia, unspecified (principal); E78.00 Pure hypercholesterolemia, unspecified; R94.6 Abnormal results of thyroid function studies
CPT/HCPCS: 36415; 80061; 82728; 84439; 84443; 85025

== ENCOUNTER → 2022-04-30 | Outpatient (CLI) | payer MEDICARE, SELFPAY ==
[2022-04-30 18:20] LABS: Absolute Lymphocyte Count 1.26 X10^3/uL (0.83-4.51); Absolute Neutrophil Count 2.5 X10^3/uL (2.0-7.7); Basophil# 0.06 X10^3/uL; Basophil% 1.3 % (0-1); Eosinophil# 0.26 X10^3/uL; Eosinophils% 5.6 % (0-5); Hematocrit 34.7 % (40-54); Hemoglobin 11.2 g/dL (13.0-16.5); Lymphocyte # 1.26 X10^3/ul (0.83-4.51); Lymphocyte % 27.2 % (19-41); Mean Corp Hgb Conc 32.3 g/dL (32-36); Mean Corpuscular Hgb 34.4 pg (27.0-32.0); Mean Corpuscular Volume 106.4 fL (80-94); Mean Platelet Vol. 9.9 fl (6.2-12.0); Monocyte# 0.58 X10^3/uL; Monocyte% 12.5 % (0-10); NRBC Flagged by Analyzer 0 % (0-5); Neutrophil # 2.46 X10^3/uL (2.7-7.7); Neutrophil % 53.2 % (47-70); Platelet Count 210 K/mm3 (150-450); RBC Distribution Width CV 13.1 % (11.6-14.6); RBC Distribution Width SD 51.5 fl (35.1-43.9); Red Blood Count 3.26 M/mm3 (4.6-6.2); White Blood Count 4.6 K/mm3 (4.4-11.0)
[2022-04-30 18:35] LABS: Erythrocyte Sedimentation Rate 10 mm/hr (0-20)
[2022-04-30 18:58] LABS: Vitamin B12 818 pg/mL (211-911); Vitamin D,25 Hydroxy 54.7 ng/mL
[2022-04-30 19:28] LABS: ALB/GLOB Ratio 1.1 RATIO (0.9-2.4); AST(SGOT) 25 U/L (15-37); Alanine Aminotransfer ALT/SGPT 26 U/L (16-61); Albumin, Serum 3.8 g/dL (3.2-5.0); Alkaline Phosphatase 56 U/L (45-117); Anion Gap 5 (5-15); BUN 25 mg/dL (7-18); BUN/Creat Ratio 18.7 RATIO (10-20); CRP < 2.90 mg/L (0.0-3.0); Chloride 108 mmol/L (98-107); Creatinine, Serum 1.34 mg/dL (0.70-1.30); EST Glomerular Filtration Rate 54 mL/min (>60); Est Glom Filt Rate - Afr Amer 65 mL/min (>60); Globulin 3.5 g/dL (2.2-4.2); Glucose 85 mg/dL (74-106); Lipase 185 U/L (73-393); Potassium 4.6 mmol/L (3.5-5.1); Protein, Total 7.3 g/dL (6.4-8.2); Sodium Level 139 mmol/L (136-145); Thyroid Stim Hormone (TSH) 4.43 uIU/mL (0.358-3.74)
[2022-05-01 10:55] LABS: PTHIN 42.5 pg/mL (18.4-80.1)
[2022-05-01 11:58] LABS: Ferritin 97 ng/mL (26-388)
[2022-05-07 14:09] LABS: PROEL- A/G Ratio 1.7 (0.7-1.7); PROEL- Albumin 4.1 g/dL (2.9-4.4); PROEL- Alpha-1 Globulin 0.2 g/dL (0.0-0.4); PROEL- Alpha-2 Globulin 0.5 g/dL (0.4-1.0); PROEL- Beta Globulin 0.9 g/dL (0.7-1.3); PROEL- Gamma Globulin 0.9 g/dL (0.4-1.8); PROEL- Globulin, Total 2.4 g/dL (2.2-3.9); PROEL- TOTAL PROTEIN 6.5 g/dL (6.0-8.5); PROELU- Alpha-1-Globulin,Ur 4.1 % (.); PROELU- Alpha-2-Globulin,Ur 8.6 % (.); PROELU- Beta Globulin, Ur 12.2 % (.); PROELU- Gamma Globulin, Ur 6.2 % (.); Total Protein, Ur 6.4 mg/dL (Not Estab.)
[2022-05-07 15:21] LABS: Vitamin A, Retinol 70.3 ug/dL (22.0-69.5)
== END | disposition home or self-care (01) ==
PROVIDERS: PCP Family Medicine; Visit Provider Family Medicine
DX: G62.9 Polyneuropathy, unspecified (principal); E78.00 Pure hypercholesterolemia, unspecified; E55.9 Vitamin D deficiency, unspecified; D64.9 Anemia, unspecified; R14.0 Abdominal distension (gaseous)
CPT/HCPCS: 36415; 80053; 82306; 82607; 82728; 82746; 83690; 83970; 84165; 84166; 84443; 84590; 85025; 85652; 86140

== ENCOUNTER → 2022-07-18 | Outpatient (CLI) | payer MEDICARE, SELFPAY ==
[2022-07-18 13:35] LABS: Hematocrit 32.7 % (40-54); Hemoglobin 10.9 g/dL (13.0-16.5); Mean Corp Hgb Conc 33.3 g/dL (32-36); Mean Corpuscular Hgb 34.3 pg (27.0-32.0); Mean Corpuscular Volume 102.8 fL (80-94); Mean Platelet Vol. 9.4 fl (6.2-12.0); Platelet Count 186 K/mm3 (150-450); RBC Distribution Width SD 48.8 fl (35.1-43.9); Red Blood Count 3.18 M/mm3 (4.6-6.2); White Blood Count 5.2 K/mm3 (4.4-11.0)
[2022-07-18 14:00] LABS: Albumin, Serum 3.7 g/dL (3.2-5.0); BUN 25 mg/dL (7-18); Calcium,Total 9.1 mg/dL (8.5-10.1); Chloride 108 mmol/L (98-107); Creatinine, Serum 1.47 mg/dL (0.70-1.30); EST Glomerular Filtration Rate 49 mL/min (>60); Est Glom Filt Rate - Afr Amer 59 mL/min (>60); Glucose 94 mg/dL (74-106); Phosphorus 3.8 mg/dL (2.5-4.9); Potassium 4.8 mmol/L (3.5-5.1); Sodium Level 140 mmol/L (136-145)
== END | disposition home or self-care (01) ==
LOC: LAB 12:49
PROVIDERS: PCP Family Medicine; Referring Provider Internal Medicine Nephrology; Visit Provider Internal Medicine Nephrology
DX: N18.31 Chronic kidney disease, stage 3a (principal); D64.9 Anemia, unspecified
CPT/HCPCS: 36415; 80069; 85027

== ENCOUNTER → 2022-08-23 | Outpatient (CLI) | payer MEDICARE, SELFPAY ==
--- NOTE | 2022-08-23 09:28 | US_ITS ---
STUDY: ULTRASOUND BREAST - RIGHT REASON FOR EXAM: Male, 82 years old. Palpable lump in the right breast. TECHNIQUE: Axial and longitudinal images of the RIGHT breast were performed with a high resolution ultrasound transducer. # OF IMAGES: 48 COMPARISON: Comparison is made with prior mammogram done earlier today. FINDINGS: RIGHT Breast: There is a 1 cm x 1.1 cm slightly irregular hypoechoic density in the retroareolar region of the right breast. A biopsy is recommended. US/Breast Limited Unilateral IMPRESSION: 1 cm x 1.1 sinus likely irregular hypoechoic density in the retroareolar region of the right breast. Biopsy is recommended. ASSESSMENT CATEGORY: BIRADS Category 4: Suspicious - Biopsy Should Be Considered. A letter regarding these results will be sent to the patient by the facility within 30 days. Electronically Signed: Milton Peterson MD at 10:41 EST ,
--- NOTE | 2022-08-23 09:28 | BI_ITS ---
MAMMOGRAPHY - BILATERAL DIAGNOSTIC REASON FOR EXAM: Male, 82 years old. Right periareolar pain. PERTINENT HISTORY: Non-contributory. TECHNIQUE: Digital bilateral breast sam (3D mammographic acquisition) in the CC and MLO projections. 2-D mediolateral oblique (MLO) and craniocaudad (CC) views of both breasts were obtained. CAD: Full Field Digital Mammography with Computer Added Detection was performed. COMPARISON: None. Baseline examination. FINDINGS: Breast Composition: Probable glandular tissue is seen in the deep right mid breast. There are no dominant masses or suspicious calcifications. No other significant abnormalities are identified. BI/DIAG MAMM W/CAD, BILAT IMPRESSION: Asymmetrical breast tissue in the right breast as described. Correlation with ultrasound is recommended. ASSESSMENT CATEGORY: BIRADS Category 0: Incomplete. Need additional imaging evaluation. A letter regarding these results will be sent to the patient by the facility within 30 days. Approximately 10% of breast cancers are not detected by mammography. A normal mammogram should not delay biopsy of a clinically suspicious abnormality. Electronically Signed: Milton Peterson MD at 13:26 EST ,
== END | disposition home or self-care (01) ==
PROVIDERS: PCP Family Medicine; Referring Provider Family Medicine; Visit Provider Family Medicine
DX: R92.8 Other abnormal and inconclusive findings on diagnostic imaging of breast (principal); N64.4 Mastodynia
CPT/HCPCS: 76642; 77062; 77066; G0279

== ENCOUNTER 2022-09-26 09:30 | Day surgery (SDC) | payer MEDICARE, SELFPAY ==
[2022-09-26 09:59] VITALS: BP 134/71; PULSE 62; RESP 18; TEMP 36.9; O2SAT 98; BMI 27.4
[2022-09-26] MEDS: Lactated Ringers 1,000 ML 15 ML IV (10:15)
--- NOTE | 2022-09-26 10:25 | HP.PCM_ITS ---
History and Physical Date of Admission: 09/26/22 Date of Service:? 08/27/22 MR#: [id number] Acct: [id number] Name:BUSHRA GHOSH Rep #: [id number] : 1940 ? ? Provider: Dr. Ray Pineda MD Age/Sex:? 82/M ? ? Location: [facility] Status: Signed Intake Vital Signs ? 06/19/2114:05 08/27/2214:22 Height 6 ft 2 in 6 ft 2 in Intake Visit Reasons:?RIGHT BIRADS 4 Chief Complaint: birads 4 Education Trainer Required: No Is patient in pain?: Yes (right breast) Allergies amoxicillin [From Augmentin] Adverse Reaction (Verified 08/27/22 14:23) Rashclavulanic acid [From Augmentin] Adverse Reaction (Verified 08/27/22 14:23) Rash Medications acetaminophen 500 mg tablet 500 - 1,000 mg PO Q6H PRN PRN Pain 08/02/17 [History Confirmed 08/27/22] aspirin 81 mg tablet,delayed release 81 mg PO DAILY@0800 08/02/17 [History Confirmed 08/27/22] cetirizine 10 mg tablet (Zyrtec) 10 mg PO DAILY 08/02/17 [History Confirmed 08/27/22] dapsone 25 mg tablet 50 mg PO QHS 08/02/17 [History Confirmed 08/27/22] ergocalciferol (vitamin D2) 1,250 mcg (50,000 unit) capsule (Vitamin D2) 50,000 unit PO QMONTH 08/02/17 [History Confirmed 08/27/22] ezetimibe 10 mg tablet 10 mg PO DAILY 08/02/17 [History Confirmed 08/27/22] famotidine 40 mg tablet 40 mg PO QHS 08/02/17 [History Confirmed 08/27/22] fluticasone propionate 50 mcg/actuation nasal spray,suspension 2 spray QHS PRN allergies 08/02/17 [History Confirmed 08/27/22] glucosamine sulfate 750 mg tablet 1,500 mg PO QHS 08/02/17 [History Confirmed 08/27/22] hydroxyzine HCl 10 mg tablet 10 mg PO QHS 08/02/17 [History Confirmed 08/27/22] multivitamin,rv-ripy-ewbcjjde 27 mg-0.4 mg tablet (Therems-M) 1 tab PO DAILY 08/02/17 [History Confirmed 08/27/22] omega-3 fatty acids-fish oil 340 mg-1,000 mg capsule (Fish Oil) 1 ea PO BID 08/02/17 [History Confirmed 08/27/22] polyethylene glycol 3350 17 gram oral powder packet 17 g PO DAILY 08/02/17 [History Confirmed 08/27/22] vit C 250 mg-vit E 90 mg-zinc 40 mg-copper 1 cr-biydve-sfdxxs capsule (PreserVision AREDS-2) 1 ea PO BID 08/02/17 [History Confirmed 08/27/22] omeprazole 20 mg capsule,delayed release 20 mg PO DAILY 09/24/19 [History Confirmed 08/27/22] levothyroxine 25 mcg tablet 25 mcg PO 08/27/22 [History Confirmed 08/27/22] PFSH Medical History?(Updated 08/27/22 @ 17:[address] Ray Pineda MD) 65 years of age or older Amnesia (retrograde) Chest pain COVID-19 Esophageal reflux Hx of venous thrombosis and embolism Pure hypercholesterolemia Shoulder pain Surgical History?(Updated 08/27/22 @ 14:22 by Patience Pathak) History of appendectomy S/P cataract extraction S/P hernia repair S/P surgical removal of pilonidal cyst Status post left heart catheterization (LHC) (~09/27/19) Social History?(Updated 08/27/22 @ 14:22 by Patience Pathak) Smoking Status:? Never smoker alcohol intake:? never HPI HPI HPI: Patient is a 82-year-old male who presents for palpable/painful right breast mass.? They are referred from Dr. Ken. ? Based on mammographic imaging criteria this was given a BI-RADS 0 and subsequent dedicated ultrasound was read as a BI-RADS 4.? The mass was first found by patient approximately couple weeks ago.? He states that he noticed it was painful when bumping the area.? This is his first episode with any sort of breast mass and patient has no prior history of breast pathology.? Therefore he also has no history of prior breast biopsy.? Patient has no first-degree relatives with breast cancer.? There is no nipple discharge associated with this finding.? There is no history of trauma/infection to the affected breast.? Patient reports that his weight of late has been stable. ROS General General: No weight change, appetite, fatigue, colon cancer, breast cancer or weakness HEENT HEENT: Yes eye surgery; No difficulty swallowing, eye injury, swollen glands or hoarseness Endo Endocrine: Yes thyroid disease; No diabetes mellitus, thyroid cancer, Hair loss, heat intolerance or cold intolerance Skin Skin: No rash or changing moles Breast Breast: Yes right breast lump; No left breast lump, nipple discharge, breast pain, abnormal mammogram, abnormal US or breast enlargement Musc Musculoskeletal: No back problems, arthritis, rheumatoid arthritis, gout or joint pain Cardio Cardiovascular: No murmur, pacemaker, heart disease, atrial fibrillation, high blood pressure, heart attack, heart stent, palpitations, shortness of breat with exertion or chest pain Psych Psychiatric: No depression, anxiety or hearing voices Resp Respiratory: No shortness of breath, No sleep apnea, No cough, No COPD, No asthma, No emphysema and No wheezing Gastro Gastrointestinal: No abdominal pain, No nausea or vomiting, No diarrhea, No constipation, No blood in stool, No acid reflux, No hemorrhoids, No ulcers, No gallbladder problem and No black,tarry stools Fly Hematologic: No blood thinners, No blood disorders, No bleeding, No anemia and Yes blood clots Neuro Neurologic: No system reviewed and no additional complaints, except as documented, No as per HPI, No abnormal gait, No abnormal hearing, No abnormal movements, No abnormal speech, No behavioral changes, No burning sensations, No confusion, No convulsions, No disequilibrium, No dizziness, No localized weakness, No frequent falls, No headache(s), No lack of coordination, No loss of vision, No memory loss, Yes numbness, No other visual disturbances, No radicular pain, No restless legs, No sensory deficit, No syncope, Yes tingling, Yes tremor(s), No weakness and No other Exam Const General: cooperative, comfortable and no acute distress Orientation: alert, awake and oriented x3 Chest Other: Patient has some bilateral fullness of his breasts.? There are no masses within the left breast or the left axilla.? There is some slight scaly discoloration of the right nipple, initially, but after reviewing the patient's mass with ultrasound and the gel this it disappears.? Outside of some immediate retroareolar firmness, there are no right breast masses.? The right axilla is also clear. Under ultrasound exam identify a hypoechoic area measuring 0.9 cm x 1.6 cm extending for a depth of 1.1 cm.? This is semimobile and not affixed to the chest wall.? It is tender with palpation. Resp Effort & Inspection: normal respiratory effort Auscultation: no rales, no rhonchi and no wheezes Cardio Rate: regular rate Assessment and Plan Assessment and Plan (1) Mass of right breast: ?Status:?Acute ?Comment: 82-year-old male who presents for painful right breast mass that was noticed incidentally when he bumped the area and noted tenderness.? Formal ultrasound of the breast was read as a BI-RADS 4.? Breast exam is unrevealing for any additional areas of concern and the index lesion is semimobile and does not appear fixed to the chest wall.? I discussed the need for tissue to make a definitive diagnosis and offered core needle biopsy versus excisional breast biopsy.? Ultimately, I suggested a favored excisional breast biopsy as this would provide a means of eliminating the patient's painful breast tissue.? Patient expressed understanding of this rationale and expressed his interest in proceeding as described. ?Plan: Excisional biopsy of retroareolar right breast mass under local MAC (2) Mastodynia of right breast: ?Status:?Acute ?Comment: Retroareolar discomfort associated with small right breast mass.? Given the mobility and patient's demographic, this seems suggestive of gynecomastia.? However, we must obtain tissue to prove this diagnosis.? Description on this issue above. I have examined the patient and the H&P has been reviewed. There are no clinical changes since date of exam. I have confirmed procedure expectations with patient and his spouse and reviewed post procedure wound care expectations. They expressed satisfaction with this information and offer no further questions. Therefore we will proceed to the operating room for right retroareolar mass excisional biopsy.
[2022-09-26] MEDS: Clindamycin 900 MG/50 ML BAG 75 MG IV (10:30)
[2022-09-26] MEDS: Bupivacaine Mpf 0.5% 30 ML VIAL (10:50)
--- NOTE | 2022-09-26 11:00 | BR_PTH ---
PATIENT: BUSHRA EDMONDSON LOC: [facility] U#:[id number] AGE/SX: 82/M ROOM: RE09/26/[address]: Dr. Ray Pineda MD : 1940 BED: DIS: 09/26/2022 SPEC #: [id number] RECD: 09/26/22 12:59 STATUS: YANCI REMark #: [id number] KHARI: 09/26/22 11:[address]: Ray Pineda DEPT: SURGICAL PATHOLOGY RECD BY: Xenia Hollins ENTERED: 09/26/22 13:07 SP TYPE: MAMOPLASTY OTHR DR: Dr. Jeronimo Perez MD Tissues: A - Right breast, NOS B - Right breast, NOS Procedures: Surgery Specimen Level IV Surgery Specimen Level V HEADER OPERATION: Right breast excisional biopsy PRE-OP DIAGNOSIS: Mass of right breast, mastodynia of right breast TISSUE SUBMITTED: A ? Right breast mass (short stitch ? superior, long stitch ? lateral), B ? Additional superior margin, right breast mass (short stitch ? superior, long stitch ? lateral) MICROSCOPIC DIAGNOSIS A. Right breast mass, excisional biopsy: Consistent with gynecomastia. Negative for atypia or malignancy. B. Additional superior margin: Consistent with gynecomastia. Negative for atypia or malignancy. SJ:cb 09/30/2022 MICROSCOPIC DESCRIPTION Slides are reviewed. GROSS DESCRIPTION A - Received in fixative is one container labeled with the patient's name and designated right breast mass, short stitch - superior, long stitch - lateral. The specimen consists of a piece of fibroadipose tissue measuring 3 x 1.5 x 1 cm. Sections reveal cerda-white, fibrous, solid cut surfaces. No obvious well-defined mass is identified. The specimen is inked as follows: anterior - yellow, posterior - black, superior - blue, inferior - green, medial - red and lateral - orange. The entire specimen is submitted in four cassettes from superior to inferior margin. B - Received in fixative is one container labeled with the patient's name and designated additional superior margin, right breast mass short stitch - superior, long stitch - lateral. The specimen consists of a piece of fibroadipose tissue measuring 2.5 x 1.5 x 0.5 cm. One surface is ragged and may represent old margin and other surface is smooth. The presumed old margin is inked yellow, new margin is inked black, superior - blue, inferior - green, medial - red and lateral - orange. Sections reveal cerda, solid, fibrous cut surfaces. No obvious mass identified. The specimen is serially sectioned and submitted entirely in three cassettes as follows: 1 - medial and lateral margins, 2 & 3 - rest of the specimen. / MOUNIKA:cb 09/27/2022 TC:5 CPT: 88323, 35043
--- NOTE | 2022-09-26 11:20 | OP.PCM_ITS ---
Report of Operation Date of Procedure: 09/26/22 Pre-Operative Diagnosis: 1. Right retroareolar breast mass 2. Mastodynia Post-Operative Diagnosis: Same Surgery/Procedure Performed:: Excisional biopsy of right retroareolar breast mass Description of Surgical Findings:: Firm, whitish colored tissue adjacent normal fatty/lobular breast tissue in the upper outer quadrant relative to the right areola Surgeon: Ray Pineda orthopedic dentist: Candida Kelley Type of Anesthesia: General/Supplemental Anesthesiologist: Jeronimo Cardoso Specimen's removed: 1. Retroareolar breast mass 2. New superior margin Estimated Blood Loss (mL): 5 Description of Procedure: After appropriate identification in the preoperative holding area, the patient was brought to the operating room where his preoperative antibiotics were completed. He was positioned supine on the operating room table and underwent induction with anesthesia. An LMA airway was placed. Patient's operative site had been preoperatively marked and it was then prepped and draped in usual panchito rile fashion. Formal timeout was conducted to confirm both patient and procedure. Local anesthetic was instilled in the appointed location for the incision and a 2.5 cm curvilinear/circumareolar incision was made over the nodular area. This was deepened with the use of electrocautery through Fei's fascia. Then the mass was dissected free of the surrounding breast tissue with a combination of sharp dissection and electrocautery taking great care to protect the surrounding skin. The mass was then patch that excised from the cavity and orientation maintained until we were able to place orientation marking stitches designating short superior long lateral with a 3-0 Vicryl. The specimen measured 2.5 cm (length) by 1.0 cm (width) by 1.25 cm (depth). Palpating within the cavity there still seem to be some denser tissue along the superior medial aspect of the current cavity so I decided to excise a new margin specimen was last named new superior margin. It, likewise, was oriented short superior, long lateral. The surgical cavity was inspected for hemostasis and selective electrocautery was used to achieve it. The cavity was irrigated and all loose breast tissue was removed from the cavity. The posterior aspect of the cavity was marked with 3 small vascular clips. Cavity was then closed at a deep dermal level with a running 3-0 Vicryl. Then the skin was closed in a subcuticular fashion with 4-0 Monocryl. Dermabond was applied as a dressing. Complications None Admit VTE Documentation VTE Mechan Device Prophylaxis: SCD's Procedures Integumentary [id number]: [id number] Removal of breast lesion
--- NOTE | 2022-09-26 11:29 | DCINST_ITS ---
Discharge Instructions Diet Discharge Diet: No restrictions Activity Discharge Activity: May Drive May shower in (days): 2 Ice area for (Minutes): 10 Dressing / Incision Call your doctor if your incision/area has: Continuous Slow Oozing, Increased Pain/ Swelling, Increased Redness, Foul Smelling Discharge and Swelling at the incision site Cleanse incision/area with: Soap & Water Follow Up Care Please Follow Up With: Ray Pineda MD When: 7-10 days postop Test Results: Test results from this visit will be discussed in further detail at your follow- up appointment, if applicable. Discharge Plan Admission Primary Reason for Your Visit: excision of right breast mass Attending Provider: Ray Pineda Primary Care Provider: Jeronimo Perez Instructions Patient Instructions: Lumpectomy or Breast Biopsy Dc Discharge Orders/Prescriptions Prescriptions: No Action levothyroxine 25 mcg tablet 25 mcg PO DAILY Label Comments: take 1 tablet by mouth once daily polyethylene glycol 3350 17 GM packet 17 g PO DAILY Rx Instructions: full dose cetirizine [Zyrtec] 10 MG tablet 10 mg PO DAILY famotidine 40 MG tablet 40 mg PO QODAY aspirin 81 MG tablet 81 mg PO DAILY@0800 acetaminophen 500 MG tablet 500 - 1,000 mg PO Q6H PRN PRN (Reason: Pain) dapsone 25 MG tablet 50 mg PO QHS ergocalciferol (vitamin D2) [Vitamin D2] 50,000 UNIT capsule 50,000 unit PO QMONTH hydroxyzine HCl 10 MG tablet 10 mg PO QHS fluticasone propionate 1 SPRAY spray,suspension 2 spray NASAL QHS PRN (Reason: allergies) ezetimibe [Zetia] 10 MG tablet 10 mg PO DAILY glucosamine sulfate 750 MG tablet 1,500 mg PO QHS Fish Oil 1 EACH capsule 1 ea PO BID PreserVision AREDS-2 1 EACH capsule 1 ea PO BID omeprazole 20 MG capsule,delayed release(DR/EC) 20 mg PO QODAY multivitamin Tablet 1 tab PO DAILY Referrals / Follow Up: Jeronimo Perez MD [Primary Care Provider] - Disposition Disposition (needs filled in before D/C Order can be placed): Home, Self Care
[2022-09-26 11:30] VITALS: BP 134/71; BP 141/54; PULSE 68; RESP 16; TEMP 36.6; O2SAT 92
[2022-09-26 11:39] VITALS: BP 126/64; BP 134/71; PULSE 63; RESP 16; O2SAT 92
[2022-09-26 11:45] VITALS: BP 126/61; BP 134/71; PULSE 62; RESP 16; O2SAT 92
[2022-09-26 11:53] VITALS: BP 128/65; BP 134/71; PULSE 60; RESP 16; TEMP 36.9; O2SAT 92
[2022-09-26 12:34] VITALS: BP 116/53; BP 134/71; PULSE 57; RESP 16; TEMP 36.8; O2SAT 99
== END 2022-09-26 12:47 | disposition home or self-care (01) ==
LOC: SDC 09:34 → AC 09:34
PROVIDERS: PCP Family Medicine; Referring Provider Surgery; Visit Provider Surgery
PROC: (CPT 19120; principal; 2022-09-26 10:45)
DX: N62 Hypertrophy of breast (principal); N64.4 Mastodynia; E07.9 Disorder of thyroid, unspecified; K21.9 Gastro-esophageal reflux disease without esophagitis; Z79.82 Long term (current) use of aspirin; Z79.899 Other long term (current) drug therapy; Z86.16 Personal history of COVID-19
CPT/HCPCS: 19120; 00400; 88305; 88307; J7120; J2405

== ENCOUNTER 2022-12-09 09:38 | Emergency (ER) | payer MEDICARE, SELFPAY ==
[2022-12-09 09:39] VITALS: BP 135/62; PULSE 59; RESP 18; TEMP 36.2; O2SAT 99; BMI 27.6
--- NOTE | 2022-12-09 10:05 | CT_ITS ---
STUDY: CT BRAIN WITHOUT CONTRAST REASON FOR EXAM: Male, 82 years old. Headache, dizziness RADIATION DOSAGE (If Supplied By Facility): CTDIvol = ( 44.99 ) mGy, DLP = ( 829.85 ) mGycm TECHNIQUE: Transaxial CT imaging of the brain was performed without administration of intravenous contrast material. Individualized dose optimization techniques were used for this CT. COMPARISON: Comparison is made with prior study dated August 02, 2017. FINDINGS: Normal soft tissue structures. Normal calvarium. There is mild cerebral atrophy with widening of the extra-axial spaces and ventricular dilatation. Normal white matter tracts of the cerebral hemispheres. Normal basal ganglia and thalami. Normal brainstem. Normal cerebellum. There is no intracranial hemorrhage. There are no findings of an acute ischemic infarction. Atherosclerotic calcification of the vertebral arteries and cavernous portions of the internal carotid arteries bilaterally. Normal visualized paranasal sinuses. CT/Brain/Head without Contrast IMPRESSION: Chronic involutional changes of the brain. Electronically Signed: Milton Peterson MD at 11:10 EDT ,
--- NOTE | 2022-12-09 10:06 | EKG12_ITS ---
Test Reason : DIZZY Blood Pressure : / mmHG Vent. Rate : 055 BPM Atrial Rate : 055 BPM P-R Int : 178 ms QRS Dur : 090 ms QT Int : 430 ms P-R-T Axes : 054 -10 049 degrees QTc Int : 411 ms Sinus bradycardia Otherwise normal ECG Confirmed by DAVID ZUNIGA, JASMINA ([id number]), loan expeditor DOROTHY TOSCANO ([id number]) on 12/11/2022 9:46:36 AM Referred By: Confirmed By:KIMBERLY HERNANDEZ MD
--- NOTE | 2022-12-09 10:08 | EX.ED.DYSGE1 ---
HPI History of Present Illness Chief Complaint: Dizziness Informant: patient Onset/Context/Timing Onset: Today (3 to 4 hours, noticed upon waking) Timing: Continuous Quality: Lightheadedness and fogginess Location: Head Current Severity: Moderate Maximum Severity: Moderate Worsened by: Nothing Relieved by: Nothing Associated Symptoms Associated Symptoms: Denies Narrative Narrative: Patient states he felt lightheaded upon waking up this morning, even before getting out of bed. Getting out of bed and walking around does not change his symptoms at all. Position changes do not change the symptoms at all. He denies any disequilibrium, vertigo, sensation of movement, or any other dizziness descriptors that I use. He denies any changes in his vision. Denies any syncope or near syncope. States he has a history of hypoglycemia but has not checked his blood sugar this morning. He states he had bronchitis along with his for a week or 2, but they are both recently over that and better, it was a couple weeks ago. He denies any other associated symptoms today except mentioning that his neck has felt a little sore and stiff for the last couple days, it has been in his upper trapezius areas where he points.. No earache, tinnitus, sore throat, thoracic symptoms, abdominal symptoms or nausea/vomiting with this. No numbness or tingling or weakness in an arm or leg. [facility] Medical History 65 years of age or older Ambulates with cane Amnesia (retrograde) Anemia Arthritis Back pain Cardiology follow-up encounter Chest pain COVID-19 DVT (deep venous thrombosis) Esophageal reflux Gastric reflux High cholesterol History of stress test Hx of venous thrombosis and embolism Kidney stone Leg cramps Mass of right breast Mastodynia of right breast Non-smoker Pure hypercholesterolemia Shoulder pain Thyroid disease Wears glasses Wears hearing aid Home Medications acetaminophen 500 mg tablet 500 - 1,000 mg PO Q6H PRN PRN Pain 08/02/17 [History Last Taken Unknown] aspirin 81 mg tablet,delayed release 81 mg PO DAILY@0800 08/02/17 [History Last Taken Unknown] cetirizine 10 mg tablet (Zyrtec) 10 mg PO DAILY 08/02/17 [History Last Taken Unknown] dapsone 25 mg tablet 50 mg PO QHS 08/02/17 [History Last Taken Unknown] ergocalciferol (vitamin D2) 1,250 mcg (50,000 unit) capsule (Vitamin D2) 50,000 unit PO QMONTH 08/02/17 [History Last Taken Unknown] ezetimibe 10 mg tablet (Zetia) 10 mg PO DAILY 08/02/17 [History Last Taken Unknown] famotidine 40 mg tablet 40 mg PO QODAY 08/02/17 [History Last Taken Unknown] fluticasone propionate 50 mcg/actuation nasal spray,suspension 2 spray QHS PRN allergies 08/02/17 [History Last Taken Unknown] glucosamine sulfate 750 mg tablet 1,500 mg PO QHS 08/02/17 [History Last Taken Unknown] hydroxyzine HCl 10 mg tablet 10 mg PO QHS 08/02/17 [History Last Taken Unknown] omega-3 fatty acids-fish oil 340 mg-1,000 mg capsule (Fish Oil) 1 ea PO BID 08/02/17 [History Last Taken Unknown] polyethylene glycol 3350 17 gram oral powder packet 17 g PO DAILY 08/02/17 [History Last Taken Unknown] vit C 250 mg-vit E 90 mg-zinc 40 mg-copper 1 [id number] capsule (PreserVision AREDS-2) 1 ea PO BID 08/02/17 [History Last Taken Unknown] omeprazole 20 mg capsule,delayed release 20 mg PO QODAY 09/24/19 [History Last Taken 09/26/22 08:00] levothyroxine 25 mcg tablet 25 mcg PO DAILY 08/27/22 [History Last Taken 09/26/22 08:00] multivitamin 1 tab PO DAILY 09/19/22 [History Last Taken Unknown] Allergy/AdvReac Type Severity Reaction Status Date / Time amoxicillin [From Augmentin] AdvReac Rash Verified 12/09/22 09:56 clavulanic acid AdvReac Rash Verified 12/09/22 09:56 [From Augmentin] Surgical History History of appendectomy History of cardiac catheterization History of excision of mass S/P cataract extraction S/P hernia repair S/P surgical removal of pilonidal cyst Status post left heart catheterization (LHC) (~09/27/19) Social History Smoking Status: Never smoker alcohol intake: never ROS ROS ED Constitutional Constitutional ED: Denies chills or fever(s) Eyes Eyes: Denies blurry vision, change in vision or diplopia ENT ENT ED: Denies rhinorrhea, sore throat, tinnitus or vertigo Cardiovascular Cardiovascular: Reports lightheadedness; Denies chest pain or palpitations Respiratory/Chest Respiratory/Chest: Denies cough or dyspnea Gastrointestinal Gastrointestinal: Denies abdominal pain, diarrhea, nausea or vomiting Genitourinary Genitourinary ED: Denies dysuria or hematuria Musculoskeletal Musculoskeletal: Reports neck pain; Denies back pain Integumentary Denies abscess or rash Neurologic Neurologic: Denies headache(s), paresthesias or weakness Psychiatric Psychiatric: Denies anxiety or suicidal thoughts EXAM Physical Exam Const Vital Signs: 12/09/22 09:39 12/09/22 10:23 12/09/22 10:28 Temperature 97.2 F L Temperature Source Temporal Pulse Rate 59 L 60 Pulse Rate [Lying] 55 L Pulse Rate [Standing (for 1 minute prior to obtaining)] 63 Respiratory Rate 18 18 Blood Pressure 135/62 H 144/69 H Blood Pressure [Lying] 133/73 H Blood Pressure [Sitting (for 1 minute prior to obtaining)] 144/69 H Blood Pressure [Standing (for 1 minute prior to obtaining)] 156/63 H Blood Pressure Mean 86 94 Blood Pressure Mean [Lying] 93 Blood Pressure Mean [Sitting (for 1 minute prior to obtaining)] 94 Blood Pressure Mean [Standing (for 1 minute prior to obtaining)] 94 Pulse Ox 99 97 Oxygen Delivery Method Room Air Room Air 12/09/22 12:00 Temperature Temperature Source Pulse Rate 53 L Pulse Rate [Lying] Pulse Rate [Standing (for 1 minute prior to obtaining)] Respiratory Rate 21 H Blood Pressure 123/84 H Blood Pressure [Lying] Blood Pressure [Sitting (for 1 minute prior to obtaining)] Blood Pressure [Standing (for 1 minute prior to obtaining)] Blood Pressure Mean 97 Blood Pressure Mean [Lying] Blood Pressure Mean [Sitting (for 1 minute prior to obtaining)] Blood Pressure Mean [Standing (for 1 minute prior to obtaining)] Pulse Ox 95 Oxygen Delivery Method Room Air Positive well nourished and well developed General Appearance ED: well developed and NAD HEENT Reports moist mucous membranes normocephalic and atraumatic Eyes PERRL and EOMs intact bilaterally Neck full ROM, no lymphadenopathy and supple Neck Narrative: Mild tenderness lower cervical paraspinal musculature/trapezius bilaterally and symmetrically without any abnormal palpation or inspection. Resp normal respiratory effort and clear to auscultation bilaterally Cardio regular rate, regular rhythm and no murmurs GI non-tender and non-distended Auscultation: normoactive bowel sounds Palpation: soft Back/Spine no CVA tenderness General Back: other FROM Extremity normal to inspection General Extremety ED: Negative for edema, pulses abnormal or tenderness General Extremity: Negative for edema or pulses abnormal Neuro oriented x3, CN's II-XII intact bilaterally and no sensory deficits noted Neuro Narrative: Negative Comanche-Hallpike bilaterally. Normal [id number] and [id number] bilaterally. Normal speech, no aphasia or dysarthria. Negative/normal jolt test. Sensorium / Orientation: awake and alert Motor Exam: strength 5/5 throughout Psych mental status grossly normal Skin no rashes or lesions noted and no wounds MDM MDM MDM Narrative Medical decision making narrative: Patient is a little bradycardic, he has not gone below 50 here, but the EKG appears normal, and he is on no AV michelle blockers after reviewing his medication list. He has some mild renal insufficiency, but no worse than usual, his orthostatics are negative, did not change his dizziness which was present throughout them, and he was given some IV fluids while the rest of the work-up was obtained. The rest of the work-up was unremarkable including 2 view chest x-ray which, interpretation negative for any pneumonia. Radiology in agreement. I was trying to elicit if there was any component of disequilibrium or vertigo here, and the patient really denies any of those symptoms, also did Comanche-Hallpike and it was negative, also did a head CT and it was negative, I reviewed those images and agree with the radiologist's interpretation that it is negative for anything acute. I offered admission to the patient based on how he is feeling, but he declines and does not want to be admitted, wants to go home and follow-up. He has not been near syncopal or syncopal. It is possible this is symptomatic bradycardia, however I see no medications I can hold to help with this or anything else I can fix for him. I advised close outpatient follow-up or return to the ER for reevaluation and possible admission if he gets worse or feels like he is going to pass out and he and his are in agreement with that, answered all questions at the bedside. Lab Data Attestation: I reviewed the patient's lab results. Labs: Laboratory Results - last 24 hr 12/09/22 12/09/22 12/09/22 10:11 10:11 12:03 WBC 4.2 L RBC 3.58 L Hgb 12.0 L Hct 37.0 L MCV 103.4 H MCH 33.5 H MCHC 32.4 RDW Std Deviation 49.4 H RDW Coeff of Dimas 12.9 Plt Count 202 MPV 9.7 Immature Gran % (Auto) 0.200 Neut % (Auto) 59.7 Lymph % (Auto) 22.2 Josephine % (Auto) 10.0 Eos % (Auto) 6.9 H Baso % (Auto) 1.0 Absolute Neuts (auto) 2.5 Absolute Lymphs (auto) 0.93 Nucleated RBC % 0 Sodium 139 Potassium 4.4 Chloride 109 H Carbon Dioxide 27.0 Anion Gap 3 L BUN 27 H Creatinine 1.39 H Estim Creat Clear Calc 46.82 Est GFR (MDRD) Af Amer 63 Est GFR (MDRD) Non-Af 52 L BUN/Creatinine Ratio 19.4 Glucose 97 Calcium 9.1 Troponin I High Sens 8 Urine Color Yellow Urine Clarity Clear Urine pH 7.0 Ur Specific Frederick 1.005 Urine Protein Negative Urine Glucose (UA) Normal Urine Ketones Negative Urine Occult Blood Negative Urine Nitrite Negative Urine Bilirubin Negative Urine Urobilinogen Normal Ur Leukocyte Esterase Negative Urine RBC 0 SEEN Urine WBC 0 SEEN Ur Squamous Epith Cells 0 SEEN Urine Bacteria 0 SEEN Urine Mucus 0 SEEN Radiography Diagnostic Testing: Clinical Impression(s) from Imaging Studies Brain CT 12/09/22 10:05 IMPRESSION: Chronic involutional changes of the brain. Electronically Signed: Milton Peterson MD at 11:10 EDT , Chest X-Ray 12/09/22 10:50 IMPRESSION: Hyperinflation. Stable examination. Electronically Signed: Milton Peterson MD at 11:12 EDT , Rhythm Strip Rhythm Strip: Sinus Rhythm Rate: 52 Ectopy: None EKG Initial EKG: Attestation: I personally reviewed and interpreted this EKG as follows: Interpretation: No Acute Injury Pattern and Sinus Bradycardia (Otherwise normal) Discharge Plan Triage Chief Complaint: Dizziness ED Provider: Guille Nails Dx/Rx/DC Orders Clinical Impression: Lightheadedness, Bradycardia, sinus Instructions: ED Bradycardia, ED Dizziness, Uncertain Cause Prescriptions: No Action levothyroxine 25 mcg tablet 25 mcg PO DAILY Label Comments: take 1 tablet by mouth once daily polyethylene glycol 3350 17 GM packet 17 g PO DAILY Rx Instructions: full dose cetirizine [Zyrtec] 10 MG tablet 10 mg PO DAILY famotidine 40 MG tablet 40 mg PO QODAY aspirin 81 MG tablet 81 mg PO DAILY@0800 acetaminophen 500 MG tablet 500 - 1,000 mg PO Q6H PRN PRN (Reason: Pain) dapsone 25 MG tablet 50 mg PO QHS ergocalciferol (vitamin D2) [Vitamin D2] 50,000 UNIT capsule 50,000 unit PO QMONTH hydroxyzine HCl 10 MG tablet 10 mg PO QHS fluticasone propionate 1 SPRAY spray,suspension 2 spray NASAL QHS PRN (Reason: allergies) ezetimibe [Zetia] 10 MG tablet 10 mg PO DAILY glucosamine sulfate 750 MG tablet 1,500 mg PO QHS Fish Oil 1 EACH capsule 1 ea PO BID PreserVision AREDS-2 1 EACH capsule 1 ea PO BID omeprazole 20 MG capsule,delayed release(DR/EC) 20 mg PO QODAY multivitamin Tablet 1 tab PO DAILY Primary Care Provider: Jeronimo Perez Referrals: Jeronimo Perez MD [Primary Care Provider] - As soon as possible Disposition Disposition: Home, Self Care
[2022-12-09 10:23] VITALS: BP 133/73; BP 144/69; BP 156/63; PULSE 55; PULSE 63
[2022-12-09 10:28] VITALS: BP 144/69; PULSE 60; RESP 18; O2SAT 97
[2022-12-09 10:30] LABS: Absolute Lymphocyte Count 0.93 X10^3/uL (0.83-4.51); Absolute Neutrophil Count 2.5 X10^3/uL (2.0-7.7); Basophil# 0.04 X10^3/uL; Eosinophil# 0.29 X10^3/uL; Eosinophils% 6.9 % (0-5); Lymphocyte # 0.93 X10^3/ul (0.83-4.51); Lymphocyte % 22.2 % (19-41); Mean Corp Hgb Conc 32.4 g/dL (32-36); Mean Corpuscular Hgb 33.5 pg (27.0-32.0); Mean Corpuscular Volume 103.4 fL (80-94); Mean Platelet Vol. 9.7 fl (6.2-12.0); Monocyte# 0.42 X10^3/uL; NRBC Flagged by Analyzer 0 % (0-5); Neutrophil # 2.49 X10^3/uL (2.7-7.7); Neutrophil % 59.7 % (47-70); Platelet Count 202 K/mm3 (150-450); RBC Distribution Width CV 12.9 % (11.6-14.6); RBC Distribution Width SD 49.4 fl (35.1-43.9); Red Blood Count 3.58 M/mm3 (4.6-6.2); White Blood Count 4.2 K/mm3 (4.4-11.0)
[2022-12-09 10:36] LABS: Anion Gap 3 (5-15); BUN 27 mg/dL (7-18); BUN/Creat Ratio 19.4 RATIO (10-20); Calcium,Total 9.1 mg/dL (8.5-10.1); Chloride 109 mmol/L (98-107); Creatinine, Serum 1.39 mg/dL (0.70-1.30); EST Glomerular Filtration Rate 52 mL/min (>60); Est Glom Filt Rate - Afr Amer 63 mL/min (>60); Estimated Creatinine Clearance 46.82 ml/min; Glucose 97 mg/dL (74-106); Potassium 4.4 mmol/L (3.5-5.1); Sodium Level 139 mmol/L (136-145); Troponin-I HS 8 pg/mL (3.0-78.0)
--- NOTE | 2022-12-09 10:50 | RAD_ITS ---
STUDY: X-RAY CHEST REASON FOR EXAM: Male, 82 years old. Weakness TECHNIQUE: PA and lateral views of the chest. COMPARISON: Comparison is made with prior examination dated September 24, 2019. FINDINGS: EKG electrodes are seen. There is hyperinflation of the lungs consistent with chronic obstructive lung disease (COPD). There is no demonstrated pleural abnormality. Normal size heart. Normal mediastinum and valentin. Normal visualized pulmonary arteries. Normal visualized aortic arch and descending thoracic aorta. There are degenerative changes of the visualized thoracic spine. Normal visualized ribs, clavicles, and shoulders. There is no demonstrated abnormality of the visualized soft tissue structures of the upper abdomen. RAD/Chest PA and Lateral IMPRESSION: Hyperinflation. Stable examination. Electronically Signed: Milton Peterson MD at 11:12 EDT ,
[2022-12-09 12:00] VITALS: BP 123/84; PULSE 53; RESP 21; O2SAT 95
[2022-12-09 12:09] LABS: Bacteria 0 SEEN /hpf (None Seen); Mucous, Urine 0 SEEN /hpf (<or=2+); Red Blood Cells-Urine 0 SEEN /hpf (0-5); Squamous Epithelial Cells - UA 0 SEEN /hpf (0-5); White Blood Cells 0 SEEN /hpf (0-5)
[2022-12-09 12:13] LABS: Color, Urine Yellow (Yellow); Glucose, Dipstick Normal (Normal); Ketone-Dipstick Negative (Negative); Leukocyte Esterase-Dipstick Negative /ul (Negative); Nitrite-Dipstick Negative (Negative); Occult Blood-Urine Negative /ul (Negative); Protein-Dipstick Negative (Negative); Specific Gravity, Urine 1.005 (1.002-1.030); Urine Bilirubin Dipstick Negative (Negative); Urine Clarity Clear (Clear); Urine Urobilinogen Normal (Normal)
== END 2022-12-09 13:40 | disposition home or self-care (01) ==
PROVIDERS: Emergency Provider Emergency Medicine; PCP Family Medicine; Visit Provider Emergency Medicine
DX: R42 Dizziness and giddiness (principal); R00.1 Bradycardia, unspecified; Z86.16 Personal history of COVID-19
CPT/HCPCS: 70450; 71046; 80048; 81001; 84484; 85025; 93005; 96360; 99285; J7030

== ENCOUNTER → 2022-12-26 | Outpatient (CLI) | payer MEDICARE, SELFPAY ==
[2022-12-26 18:09] LABS: Vitamin B12 750 pg/mL (211-911)
[2022-12-26 18:11] LABS: Thyroid Stim Hormone (TSH) 3.19 uIU/mL (0.358-3.74)
== END | disposition home or self-care (01) ==
LOC: MFPLAB 16:35
PROVIDERS: Family Medicine; PCP Family Medicine; Visit Provider Family Medicine
DX: R42 Dizziness and giddiness (principal); R00.1 Bradycardia, unspecified
CPT/HCPCS: 36415; 82607; 84443

== ENCOUNTER → 2023-02-11 | Outpatient (CLI) | payer MEDICARE, SELFPAY ==
[2023-02-11 13:45] LABS: T4 Free Direct 1.09 ng/dL (0.76-1.46); Thyroid Stim Hormone (TSH) 2.57 uIU/mL (0.358-3.74)
== END | disposition home or self-care (01) ==
LOC: MFPLAB 10:23
PROVIDERS: PCP Family Medicine; Visit Provider Family Medicine
DX: R79.89 Other specified abnormal findings of blood chemistry (principal); R00.1 Bradycardia, unspecified
CPT/HCPCS: 36415; 84439; 84443

== ENCOUNTER → 2023-03-06 | Outpatient (CLI) | payer MEDICARE, SELFPAY ==
--- NOTE | 2023-03-06 10:00 | CDU_ITS ---
Reason For Study: DIZZINESS Rt. Velocities/BP Lt. Velocities/BP Prox CCA 103.9/18.1 cm/sec. Prox CCA 130.8/21.2 cm/sec. Mid CCA 69.1/13.1 cm/sec. Mid CCA 92.9/13.0 cm/sec. Dist CCA 58.1/12.0 cm/sec. Dist CCA 76.0/9.7 cm/sec. Prox ICA 33.6/7.4 cm/sec. Prox ICA 33.9/6.5 cm/sec. Mid ICA 49.9/15.9 cm/sec. Mid ICA 66.0/18.8 cm/sec. Dist ICA 68.8/21.7 cm/sec. Dist ICA 73.6/26.4 cm/sec. Rt. ICA/CCA = 68.8/69.1=1.0. Lt. ICA/CCA = 73.6/92.9=0.8. Prox ECA 63.6/7.6 cm/sec. Prox ECA 98.1/8.5 cm/sec. Rt. Vert. 50.5/13.9 cm/sec. Lt. Vert. 57.5/16.9 cm/sec. Right Extracranial There is intimal thickening but no significant atherosclerotic plaque noted in the right common carotid artery. There is heterogeneous, irregular atherosclerotic plaque noted in the right internal carotid artery. There is intimal thickening but no significant atherosclerotic plaque noted in the right external carotid artery. Antegrade flow is noted in the right vertebral artery. Left Extracranial There is homogeneous, smooth atherosclerotic plaque noted in the left common carotid artery. There is homogeneous, irregular atherosclerotic plaque noted in the left internal carotid artery. There is intimal thickening but no significant atherosclerotic plaque noted in the left external carotid artery. Antegrade flow is noted in the left vertebral artery. Procedure Carotid Duplex 27784. This is a Carotid Duplex examination using B-mode, color flow and specral Doppler. Exam performed in department. VL/Carotid Duplex Ultrasound Interpretation Summary Heterogenous plaque at the proximal right internal carotid artery with less jos éluis n 50% stenosis. Significant calcific plaque shadowing noted. Less than 50% stenosis right external carotid artery More mild irregular plaque at the proximal left internal carotid artery with le ss than 50% stenosis Less than 50% stenosis left external carotid artery Patent and antegrade vertebral arteries bilaterally The amount of plaque present is new from a previous study of April 14, 2009 but flow velocities remain constant Ordering Physician: Peter Goldman Referring Physician: Jeronimo Perez Performed By: Kinsey Montenegro, HEIKECS, RVT
--- NOTE | 2023-03-06 10:00 | ECHOD_ITS ---
Reason For Study: Dizziness Procedure This was a 2D Doppler, Color Flow transthoracic echocardiogram. Exam performed in department. Left Ventricle Normal LV size. Left ventricular systolic function is normal. The estimated ejection fraction is 70 %. Stage 1 diastolic dysfunction. No regional wall motion abnormalities noted. Right Ventricle Normal RV size. Normal systolic function. Tricuspid Valve Normal tricuspid valve. Mild (1+) tricuspid valve insufficiency. Pulmonary artery systolic pressure is 30 mmHg. Aortic Valve Normal aortic valve. Trisinus/trileaflet aortic valve. Trivial aortic valve insufficiency. Pulmonic Valve Normal pulmonic valve. Great Vessels Moderately dilated aortic root. The pulmonary artery is normal size. Normal inferior vena cava. Pericardium/Pleural No pericardial effusion. MMode/2D Measurements & Calculations LVIDd: 4.4 cm IVSd: 0.99 cm Ao root diam: 4.3 cm LVIDs: 2.9 cm LVPWd: 0.88 cm LA dimension: 3.5 cm RVDd: 4.5 cm FS: 32.9 % LAV(MOD-bp): 62.9 ml LA A4 area: 19.8 cm2 RA A4 area: 21.2 cm2 LAV(MOD-bp) Indexed: 28.0 ml/m2 LAV(MOD-sp2): 69.4 ml LAV(MOD-sp4): 54.1 ml Time Measurements MV dec time: 0.23 sec Doppler Measurements & Calculations MV E max soy: 53.9 cm/sec Lat Peak E' Soy: 8.5 cm/sec Med Peak E' Soy: 10.2 cm/sec MV A max soy: 69.9 cm/sec E/E' lat: 6.4 E/E' med: 5.3 MV E/A: 0.77 MV V2 max: 77.2 cm/sec MV P1/2t max soy: 77.2 cm/sec Ao V2 max: 138.9 cm/sec MV max P.4 mmHg MV P1/2t: 97.4 msec Ao max P.7 mmHg MV V2 mean: 42.9 cm/sec Ao V2 mean: 93.5 cm/sec MV mean P.88 mmHg MV dec slope: 232.0 cm/sec2 Ao mean P.0 mmHg MV V2 VTI: 27.8 cm MVA(P1/2t): 2.3 cm2 Ao V2 VTI: 31.5 cm AV (velocity ratio): 0.98 AI max soy: 388.7 cm/sec LV V1 max: 125.8 cm/sec PA V2 max: 123.0 cm/sec AI max P.4 mmHg LV V1 max P.3 mmHg PA V2 mean: 78.3 cm/sec AI dec slope: 188.5 cm/sec2 LV V1 mean P.3 mmHg AI P1/2t: 604.0 msec LV V1 mean: 83.6 cm/sec LV V1 VTI: 31.0 cm PI end-d soy: 106.5 cm/sec TR max soy: 252.5 cm/sec TR max P.5 mmHg ECHO/Echo Complete Interpretation Summary Normal LV size. Left ventricular systolic function is normal. The estimated ejection fraction is 70 %. Stage 1 diastolic dysfunction. Moderately dilated aortic root. Trivial aortic valve insufficiency. Ordering Physician: Peter Goldman Referring Physician: Jeronimo Perez Performed By: Hira Meade RCS
== END | disposition home or self-care (01) ==
PROVIDERS: PCP Family Medicine; Referring Provider Internal Medicine Cardiovascular Disease; Visit Provider Internal Medicine Cardiovascular Disease
DX: R94.31 Abnormal electrocardiogram [ECG] [EKG] (principal); R42 Dizziness and giddiness
CPT/HCPCS: 93306; 93880

== ENCOUNTER → 2023-03-21 | Outpatient (CLI) | payer MEDICARE, SELFPAY ==
[2023-03-21 16:15] LABS: Absolute Lymphocyte Count 1.46 X10^3/uL (0.83-4.51); Absolute Neutrophil Count 2.4 X10^3/uL (2.0-7.7); Basophil# 0.04 X10^3/uL; Basophil% 0.8 % (0-1); Eosinophil# 0.29 X10^3/uL; Eosinophils% 5.8 % (0-5); Hematocrit 33.3 % (40-54); Hemoglobin 10.6 g/dL (13.0-16.5); Lymphocyte # 1.46 X10^3/ul (0.83-4.51); Lymphocyte % 29.3 % (19-41); Mean Corp Hgb Conc 31.8 g/dL (32-36); Mean Corpuscular Hgb 33.1 pg (27.0-32.0); Mean Corpuscular Volume 104.1 fL (80-94); Mean Platelet Vol. 10.1 fl (6.2-12.0); Monocyte# 0.77 X10^3/uL; Monocyte% 15.5 % (0-10); NRBC Flagged by Analyzer 0 % (0-5); Neutrophil # 2.41 X10^3/uL (2.7-7.7); Neutrophil % 48.4 % (47-70); Platelet Count 195 K/mm3 (150-450); RBC Distribution Width SD 49.7 fl (35.1-43.9)
[2023-03-21 16:36] LABS: ALB/GLOB Ratio 1.1 RATIO (0.9-2.4); AST(SGOT) 23 U/L (15-37); Alanine Aminotransfer ALT/SGPT 22 U/L (16-61); Albumin, Serum 3.6 g/dL (3.2-5.0); Alkaline Phosphatase 64 U/L (45-117); Anion Gap 6 (5-15); BUN 28 mg/dL (7-18); BUN/Creat Ratio 17.5 RATIO (10-20); Calcium,Total 8.7 mg/dL (8.5-10.1); Chloride 110 mmol/L (98-107); EST Glomerular Filtration Rate 44 mL/min (>60); Est Glom Filt Rate - Afr Amer 53 mL/min (>60); Globulin 3.4 g/dL (2.2-4.2); Glucose 88 mg/dL (74-106); Potassium 4.8 mmol/L (3.5-5.1); Sodium Level 139 mmol/L (136-145)
== END | disposition home or self-care (01) ==
LOC: MFPLAB 13:54
PROVIDERS: PCP Family Medicine; Visit Provider Family Medicine
DX: R42 Dizziness and giddiness (principal); N18.30 Chronic kidney disease, stage 3 unspecified; N64.4 Mastodynia
CPT/HCPCS: 36415; 80053; 84146; 85025

== ENCOUNTER → 2023-07-17 | Outpatient (CLI) | payer MEDICARE, SELFPAY ==
[2023-07-17 16:12] LABS: Albumin, Serum 3.6 g/dL (3.2-5.0); BUN 30 mg/dL (7-18); BUN/Creat Ratio 20.7 RATIO (10-20); Calcium,Total 8.6 mg/dL (8.5-10.1); Chloride 109 mmol/L (98-107); Creatinine, Serum 1.45 mg/dL (0.70-1.30); EST Glomerular Filtration Rate 49 mL/min (>60); Est Glom Filt Rate - Afr Amer 60 mL/min (>60); Glucose 88 mg/dL (74-106); Phosphorus 3.3 mg/dL (2.5-4.9); Potassium 4.5 mmol/L (3.5-5.1); Sodium Level 138 mmol/L (136-145)
== END | disposition home or self-care (01) ==
LOC: LAB 14:49
PROVIDERS: PCP Family Medicine; Visit Provider Internal Medicine Nephrology
DX: N18.31 Chronic kidney disease, stage 3a (principal)
CPT/HCPCS: 36415; 80069

== ENCOUNTER → 2024-07-08 | Outpatient (CLI) | payer MEDICARE, SELFPAY ==
[2024-07-08 14:08] LABS: Hematocrit 32.9 % (40-54); Hemoglobin 10.7 g/dL (13.0-16.5); Mean Corp Hgb Conc 32.5 g/dL (32-36); Mean Corpuscular Hgb 33.9 pg (27.0-32.0); Mean Corpuscular Volume 104.1 fL (80-94); Mean Platelet Vol. 9.7 fl (6.2-12.0); Platelet Count 180 K/mm3 (150-450); RBC Distribution Width CV 13.2 % (11.6-14.6); RBC Distribution Width SD 50.6 fl (35.1-43.9); Red Blood Count 3.16 M/mm3 (4.6-6.2); White Blood Count 5.3 K/mm3 (4.4-11.0)
[2024-07-08 14:40] LABS: Albumin, Serum 3.5 g/dL (3.2-5.0); BUN 32 mg/dL (7-18); BUN/Creat Ratio 21.8 RATIO (10-20); Calcium,Total 9.5 mg/dL (8.5-10.1); Chloride 110 mmol/L (98-107); Creatinine, Serum 1.47 mg/dL (0.70-1.30); EST Glomerular Filtration Rate 48 mL/min (>60); Est Glom Filt Rate - Afr Amer 59 mL/min (>60); Glucose 98 mg/dL (74-106); Phosphorus 3.6 mg/dL (2.5-4.9); Potassium 4.4 mmol/L (3.5-5.1); Sodium Level 138 mmol/L (136-145)
== END | disposition home or self-care (01) ==
PROVIDERS: PCP Family Medicine; Referring Provider Internal Medicine Nephrology; Visit Provider Internal Medicine Nephrology
DX: N18.31 Chronic kidney disease, stage 3a (principal); D63.1 Anemia in chronic kidney disease
CPT/HCPCS: 36415; 80069; 85027

== ENCOUNTER 2025-02-10 10:00 | Outpatient (RCR) | payer MEDICARE, SELFPAY ==
--- NOTE | 2024-11-11 16:09 | HP.PTEVAL ---
Patient's Visit Information Visit Information Visit Information: BUSHRA EDMONDSON is a 84 year old M referred to Physical Therapy by Dr. Jeronimo Perez MD with a diagnosis of falls, Neuropathy. Date of Evaluation: 11/11/24 Physical Therapist: Kike Gomez, PT, ATC Visit Plan Frequency: 2x /Week Duration: 4-6 Weeks Plan: B LE strengthening, balance proprio, gait training, stair negotiation, and HEP Subjective Subjective: Pt reports he fell approximately one week ago while at the [employer]. Pt reports he was not hurt at the time, but notes he has noticed over the past several weeks how hard it is to get off of his hands an knees. Pt reports no other falls at this time. Pt reports he uses an AD when he is ambulating on uneven ground. Pt has a mild form of neuropathy which results in a diminished sensation in his LE's. Pt lives with his in a 2 story apartment building. Pt notes he is starting to have difficulty with stair negotiation at this time secondary to LE weakness. Pt denies any pain at this time. Objective Objective: Neuro: B LE L4-5 dermatomes are hyposensitive to light touch. All other B LE sensation is WNL to light touch Sit to stands 8 reps TUG 11.62 FGA: 23/30 MMT: B knee flex and extension are rated at 4/5. B hips are 5/5 throughout Balance/Special Test Scores Functional Gait Assessment Score: 23 % Disability: 23.3400 Lower Extremity Functional Score: 36 Goals Goal 1:: Increase B LE strength x 1 grade to aid with transfers Goal Time Frame: 4-6 Weeks Goal 2:: Pt will perform 10 sit to stand transfers in 30 sec Goal Time Frame: 4-6 Weeks Goal 3:: Pt will negotiate 10 stairs with one handrail reciprocally without difficulty Goal Time Frame: 4-6 Weeks Goal 4:: Increase FGA x 2 points to aid with preventing future falls Goal Time Frame: 4-6 Weeks Rehabilitation Potential Physical Therapy Diagnosis: Pt has LE weakness and difficulty with transfers secondary to debilitation Rehabilitation Potential: Good Anticipated Interventions Patient/Client Instruction: Educate patient on: Condition and Plan of Care For the Purpose of:: To improve self management Therapeutic Exercise to Include: Strength training, Endurance training, Balance training and Gait and locomotor training For the Purpose of:: To improve muscle performance and motor function, To improve ability to perform ADL's and To increase tolerance to activity/condition/position Text: Thank you for the opportunity to evaluate your patient. For Medicare and Medicare HMO plans, please review the plan of care and approve it. It will need to be FAXED BACK to us at [phone] for Medicare purposes. For Medicare only, by signing this I certify the plan of care. Please let me know if there are questions or concerns regarding this plan of care. Physician Signature: Date:
--- NOTE | 2025-02-10 11:06 | HP.PTDCSUM_ITS ---
Discharge Summary D/C summary: It has been my pleasure to treat BUSHRA EDMONDSON referred by Dr. Jeronimo Perez MD, with the diagnosis of falls, Neuropathy for a total of 10 visit(s). Discharge Date: Please see the following information for a summary of their discharge status. Subjective Subjective: I am not really sure I have made a lot of progress Overall Improvement % Improvement: 30 Objective Objective/Function: FGA 26/30 Pt is able to reciprocally negotiate 10 stairs with one handrail Pt is able to perform 9 sit to stands in 30 seconds B LE's are grossly 4+/5 Goals Goal 1:: Increase B LE strength x 1 grade to aid with transfers Goal Progress: Goal Met Goal 2:: Pt will perform 10 sit to stand transfers in 30 sec Goal Progress: Progressing Goal 3:: Pt will negotiate 10 stairs with one handrail reciprocally without difficulty Goal Progress: Goal Met Goal 4:: Increase FGA x 2 points to aid with preventing future falls Goal Progress: Goal Met Plan Plan: Discharge to [facility] D/C Information d/c sentence: If there are questions or concerns regarding this patient's physical therapy, please feel free to call me at [phone]. Thank you for the referral of this patient. Sincerely, Kike Gomez, PT, ATC Balance/Gait/Functional tests Balance/Special Test Scores Functional Gait Assessment Score: 26 % Disability: 13.3400 Lower Extremity Functional Score: 50 Improvement % Improvement: 30
== END 2025-02-10 19:00 | disposition home or self-care (01) ==
LOC: PT 10:00
PROVIDERS: PCP Family Medicine; Referring Provider Family Medicine; Visit Provider Family Medicine
DX: G62.9 Polyneuropathy, unspecified (principal); R29.6 Repeated falls
CPT/HCPCS: 97110; 97161; 97530

== ENCOUNTER → 2025-07-05 | Outpatient (CLI) | payer MEDICARE, SELFPAY ==
[2025-07-05 12:30] LABS: Hematocrit 32.2 % (40-54); Hemoglobin 10.3 g/dL (13.0-16.5); Immature Granulocytes Count 0.020 X10^3/uL (0.0-0.0); Immature Reticulocyte Fraction 13.30 % (3.00-15.90); Mean Corp Hgb Conc 32.0 g/dL (32-36); Mean Corpuscular Volume 104.9 fL (80-94); Mean Platelet Vol. 9.8 fl (6.2-12.0); NRBC Flagged by Analyzer 0 % (0-5); POSITIVE DIFFERENTIAL YES; Platelet Count 160 K/mm3 (150-450); RBC Distribution Width CV 13.2 % (11.6-14.6); RBC Distribution Width SD 50.8 fl (35.1-43.9); Red Blood Count 3.07 M/mm3 (4.6-6.2); Reticulocyte Count 1.78 % (0.5-1.5); White Blood Count 4.8 K/mm3 (4.4-11.0)
[2025-07-05 13:12] LABS: AST(SGOT) 27 U/L (<=37); Alanine Aminotransfer ALT/SGPT 16 U/L (<=46); Albumin, Serum 4.2 g/dL (3.4-4.8); Alkaline Phosphatase 56 U/L (40-129); Anion Gap 10 (5-15); BUN 29 mg/dL (4-19); BUN/Creat Ratio 20.0 RATIO (10-20); Calcium,Total 9.5 mg/dL (7.6-11.0); Carbon Dioxide 22.6 mmol/L (21.0-32.0); Chloride 105 mmol/L (98-108); Ferritin 46 ng/mL (37-417); Globulin 2.9 g/dL (2.2-4.2); Glucose 105 mg/dL (70-99); Potassium 4.6 mmol/L (3.3-5.1); Vitamin B12 719 pg/mL (180-914)
[2025-07-05 13:13] LABS: FOLATES,SERUM (FOLIC ACID) 18.50 ng/mL (4.60-34.80)
[2025-07-05 14:10] LABS: Iron 78 ug/dL (65-175); Iron Binding Capacity,Total 292 ug/dL (250-450); Iron Binding Capacity,Unsat 214 ug/dL (228-428)
== END | disposition home or self-care (01) ==
LOC: MFPLAB 10:38
PROVIDERS: PCP Family Medicine; Visit Provider Family Medicine
DX: D64.9 Anemia, unspecified (principal); L13.0 Dermatitis herpetiformis
CPT/HCPCS: 80053; 82607; 82728; 82746; 83540; 83550; 85025; 85045